=== PATIENT | female | born 1990 | race Caucasian/White ===

== ENCOUNTER 2020-09-21 13:12 | Emergency (ER) | payer OTHER, SELFPAY ==
--- NOTE | ~2020-09-21 | XR_ITS ---
EXAMINATION: XR chest 2V DATE: 09/21/2020 13:58 INDICATION: Chest pain. TECHNIQUE: Frontal and lateral views of the chest were obtained. COMPARISON: Chest 2 views 12/30/16 FINDINGS: The chest demonstrates clear lungs without pneumonia, pleural effusion, or pneumothorax. Th e heart size is normal. IMPRESSION: 1. No acute cardiopulmonary disease. Reviewed, dictated and finalized at location B. PROCESSOR
[2020-09-21 13:17] VITALS: BP 127/76; RESP 18; TEMP 37.1; O2SAT 100
--- NOTE | 2020-09-21 13:21 | ECG_ITS ---
Measurements Intervals [place] Rate: 88 P: 77 AR: 119 QRS: 77 QRSD: 78 T: 19 QT: 343 QTc: 415 Interpretive Statements SINUS RHYTHM WITH SINUS ARRHYTHMIA WITH SHORT AR INTERVAL LEFT ATRIAL ENLARGEMENT INCOMPLETE RIGHT BUNDLE BRANCH BLOCK BORDERLINE ECG Electronically Signed On 09-21-2020 14:12:16 MEDICAL REVIEW COORDINATOR by Wale Covarrubias D.O.
[2020-09-21 13:38] VITALS: O2SAT 100
[2020-09-21 13:41] LABS: Basophils Absolute Auto 0.1 K/mm3 (0.0-0.1); Basophils Percent Auto 0.9 % (0.2-1.2); Eosinophils Absolute Auto 0.1 K/mm3 (0-0.3); Eosinophils Percent Auto 2.6 % (0-4.4); Hematocrit 45.9 % (37.0-47.0); Immature Granulocyte Absolute 0.01 K/mm3 (0.00-0.031); Immature Granulocyte Percent A 0.2 % (0-0.5); Lymphocytes Absolute Auto 1.21 K/mm3 (0.9-3.2); Lymphocytes Percent Auto 22.6 % (18.3-44.2); Mean Corpuscular HGB Conc 32.7 g/dl (32-36); Mean Corpuscular Hemoglobin 29.4 pg (26-34); Mean Platelet Volume 9.8 fl (7.4-10.4); Monocytes Absolute Auto 0.4 K/mm3 (0.1-0.6); Monocytes Percent Auto 6.9 % (2.6-8.5); Neutrophils Absolute Auto 3.6 K/mm3 (1.3-6.7); Neutrophils Percent Auto 66.8 % (45.5-73.1); Platelet Count Result 358 k/mm3 (150-375); Red Cell Distribution Width 12.3 % (11.5-14.5); White Blood Count 5.4 K/mm3 (4.5-10.0)
[2020-09-21] MEDS: ASPIRIN 81 MG CHEWABLE TABLET 324 MG PO (13:49)
[2020-09-21 13:53] LABS: Anion Gap 7 mmol/L (8-16); Blood Urea Nitrogen 12 mg/dL (7-17); Calcium 9.8 mg/dL (8.4-10.2); Carbon Dioxide 30 mmol/L (22-30); Chloride 104 mmol/L (98-107); Estimated CRCL calculation 85 ml/min; Estimated Glomerular Filt Rate > 60; Glucose 84 mg/dL (65-105); Potassium 4.3 mmol/L (3.4-5.0); Sodium 141 mmol/L (137-145)
[2020-09-21 14:03] LABS: Troponin I < 0.012 ng/mL (0.000-0.034)
--- NOTE | 2020-09-21 14:09 | ED.GENADULT ---
HPI - General Adult General Chief complaint: Chest Pain Stated complaint: chest pain Time Seen by Provider: 09/21/20 13:31 Source: patient Mode of arrival: ambulatory Limitations: no limitations History of Present Illness HPI narrative: Patient presents for evaluation of intermittent pressure-like pain to the center of her chest that has been intermittent over the past week. Patient states that she has had chest pains in the past that were stemmed from her anxiety. Patient states originally she felt that this was the same as a few of the incidents happen when she was busy and, in chaos or after an argument with her however she wanted to present for evaluation to be safe rather than sorry. Patient states normally when she has these episodes she calms herself down and they resolve over 15 minutes. However she states last night after an argument with her she had the pain present and it lasted for an hour. Patient states few of the time she has taken her prescribed Xanax which seems to have helped. She reports when the pain presents and she takes a deep breath she feels that it worsens the pain. Otherwise she denies feeling short of breath, diaphoretic, having palpitations, nausea, vomiting, diarrhea, radiation of pain. Patient denies having chronic medical diseases except for anxiety. Patient denies having chest pain presently. Related Data Allergies Allergy/AdvReac Type Severity Reaction Status Date / Time No Known Allergies Allergy Unknown Unverified 07/01/19 15:06 Review of Systems Review of Systems: Narrative: CONSTITUTIONAL: Denies fever, chills, or sweats. EYES: Denies visual changes, redness, or discharge. ENT: Denies rhinorrhea, congestion, sore throat, or otalgia. CARDIOVASCULAR: Reports intermittent chest pain denies palpitations, or edema. RESPIRATORY: Denies cough or dyspnea. GASTROINTESTINAL: Denies abdominal pain, nausea, vomiting, or diarrhea. GENITOURINARY: Denies dysuria or hematuria. SKIN: Denies rash or itching. MUSCULOSKELETAL: Denies back pain, joint pain, or myalgia. NEUROLOGIC: Denies headache, numbness, dizziness, or weakness. PSYCHIATRIC: Reports anxiety denies depression. Exam Narrative: Exam Narrative: GENERAL: Well-appearing, well-nourished, and in no acute distress. HEAD: Normocephalic, atraumatic. EYES: PERRLA and EOMI. ENT: Nares clear, no rhinorrhea or epistaxis. Mucous membranes moist. Bilateral TMs pearly del castillo nonbulging NECK: Supple. No adenopathy or masses. Range of motion intact. CHEST: Pain now elicited with palpation of chest wall. Clear to auscultation. No respiratory distress. No wheezes rales or rhonchi HEART: Regular rate and rhythm. ABDOMEN: Soft, nontender, nondistended, normal active bowel sounds. EXTREMITIES: Normal range of motion. No edema. SKIN: Warm, dry, no rash. NEURO: No focal deficits. Alert and oriented x3. PSYCH: Normal mood and affect. Course Vital Signs Vital signs: Vital Signs Temperature 98.7 F 09/21/20 13:17 Respiratory Rate 18 09/21/20 13:17 Blood Pressure 127/76 09/21/20 13:17 Pulse Oximetry 100 09/21/20 13:17 Temperature 98.7 F 09/21/20 13:17 Pulse Rate 72 09/21/20 14:56 Respiratory Rate 18 09/21/20 14:56 Blood Pressure 127/76 09/21/20 13:17 Pulse Oximetry 100 09/21/20 14:56 Medical Decision Making MDM Narrative Medical decision making narrative: Patient's heart score is 0-1. Patient continues to not have any pain during her emergency department stay. Patient's EKG and troponin and D-dimer are stable. Patient has been instructed to follow-up with her primary care for further investigation which may include stress test, Holter monitoring or echo, or cardiology referral. Patient instructed to return to emergency department if she has any worsening or emergent symptoms. Vital Signs Vital Signs: Vital Signs Temperature 98.7 F 09/21/20 13:17 Respiratory Rate 18 09/21/20 13:17 Blood Pressure 127/7
[2020-09-21 14:15] VITALS: PULSE 89; RESP 15; O2SAT 100
[2020-09-21 14:36] LABS: Prothrombin Time 13.3 Seconds (11.1-14.7)
[2020-09-21 14:37] LABS: Partial Thromboplastin Time 31.3 SECONDS (22.3-36.8)
[2020-09-21 14:41] LABS: D Dimer 0.27 ug/mL (<0.48)
[2020-09-21 14:54] VITALS: PULSE 90
[2020-09-21 14:56] VITALS: PULSE 72; RESP 18; O2SAT 100
== END 2020-09-21 15:39 | disposition home or self-care (01) ==
PROVIDERS: General Practice; Emergency Provider Emergency Medicine
DX: R07.89 Other chest pain (principal)
CPT/HCPCS: 36415; 71046; 80048; 84484; 85025; 85380; 85610; 85730; 93005; 99284; A9270

== ENCOUNTER 2022-04-15 08:17 | Emergency (ER) | payer OTHER, SELFPAY ==
--- NOTE | ~2022-04-15 | XR_ITS ---
EXAMINATION: XR chest 2V DATE: 04/15/2022 09:07 INDICATION: Cough TECHNIQUE: PA and lateral views of the chest are obtained. COMPARISON: None available FINDINGS: The lungs are free of acute opacities. No pleural effusion or pneumothorax. The cardiomedia stinal silhouette is normal. The visualized bones and soft tissues are unremarkable. IMPRESSION: 1. No acute cardiopulmonary abnormality. Reviewed, dictated and finalized at location A.
[2022-04-15 08:22] VITALS: BP 132/74; PULSE 99; RESP 16; TEMP 36.7; O2SAT 100
--- NOTE | 2022-04-15 09:01 | ED.GENADULT ---
HPI - General Adult General Chief complaint: Upper Respiratory Infection Stated complaint: Sore Throat/Cough Source: patient Mode of arrival: ambulatory Limitations: no limitations History of Present Illness HPI narrative: Patient presents for evaluation of sick symptoms for the past 5 days. Symptoms include sore throat and productive cough of green sputum. She denies any fever, chills, nausea, vomiting, diarrhea, shortness of breath, otalgia. Her son is being evaluated here for similar symptoms. She had COVID in January of this year. She is not taking any medication for symptoms. No additional complaints or concerns Related Data Allergies Allergy/AdvReac Type Severity Reaction Status Date / Time No Known Allergies Allergy Unknown Unverified 07/01/19 15:06 Review of Systems Review of Systems: CONSTITUTIONAL: Denies fever, chills, or sweats. EYES: Denies visual changes, redness, or discharge. ENT: Reports sore throat. Denies rhinorrhea, congestion, or otalgia. CARDIOVASCULAR: Denies chest pain, palpitations, or edema. RESPIRATORY:Reports productive cough of green sputum. Denies dyspnea. GASTROINTESTINAL: Denies abdominal pain, nausea, vomiting, or diarrhea. GENITOURINARY: Denies dysuria or hematuria. SKIN: Denies rash or itching. MUSCULOSKELETAL: Denies back pain, joint pain, or myalgia. NEUROLOGIC: Denies headache, numbness, dizziness, or weakness. PSYCHIATRIC: Denies anxiety or depression. PMFSH Past Medical History Medical History (Updated 04/15/22 @ 09:24 by Pedro Mar, [employer], ) No pertinent past medical history Surgical History Surgical History No pertinent past surgical history Family History Family History (Updated 04/15/22 @ 09:05 by Pedro Mar, [facility], ) Mother Family history non-contributory Social History Social History (Updated 04/15/22 @ 09:06 by Pedro Mar, [facility], ) Substance use: never Living arrangements: with family Gender identity (if verbalized by the patient): Female Sexual Orientation (if Verbalized by the Patient): Straight or Heterosexual Spiritual care concerns: No Exam Narrative: GENERAL: Well-appearing, well-nourished, and in no acute distress. HEAD: Normocephalic, atraumatic. EYES: PERRLA and EOMI. ENT: Nares clear, no rhinorrhea or epistaxis. Mucous membranes moist. There is posterior pharyngeal erythema without exudate. Uvula is midline. Bilateral TMs pearly del castillo nonbulging NECK: Supple. No adenopathy or masses. No carotid bruits or JVD CHEST: Clear to auscultation. No respiratory distress. No wheezes rales or rhonchi HEART: Regular rate and rhythm. No murmur heard. Normal peripheral pulses. ABDOMEN: Soft, nontender, nondistended, normal active bowel sounds. EXTREMITIES: Normal range of motion. No edema. SKIN: Warm, dry, no rash. NEURO: No focal deficits. Alert and oriented x3. PSYCH: Normal mood and affect. Course Course Emergency Course: This is a 31-year-old female who presented for evaluation of sick symptoms. COVID test was negative. Chest x-ray normal. She does have posterior pharyngeal erythema and her son has similar symptoms. We will treat with Augmentin do not have rapid strep testing available today. Mucinex DM for cough. Follow-up outpatient for further evaluation and treatment return for worsening symptoms. Patient is in agreement with plan of care. Level of Care: Express Care Visit Vital Signs Vital signs: Vital Signs Temperature 36.7 C 04/15/22 08:22 Pulse Rate 99 04/15/22 08:22 Respiratory Rate 16 04/15/22 08:22 Blood Pressure 132/74 04/15/22 08:22 Pulse Oximetry 100 04/15/22 08:22 Oxygen Delivery Room Air 04/15/22 08:22 Temperature 36.7 C 04/15/22 08:22 Pulse Rate 99 04/15/22 08:22 Respiratory Rate 16 04/15/22 08:22 Blood Pressure 132/74 04/15/22 08:22 Pulse Oximetry 100 04/15/22 08:22 Oxygen Delivery Room Air
== END 2022-04-15 09:35 | disposition home or self-care (01) ==
PROVIDERS: Emergency Provider Nurse Practitioner
DX: J02.9 Acute pharyngitis, unspecified (principal); Z20.822 Contact with and (suspected) exposure to COVID-19; Z86.16 Personal history of COVID-19
CPT/HCPCS: 71046; 87081; 87426; 99213; C9803; G0463

== ENCOUNTER 2022-07-11 17:57 | Emergency (ER) | payer OTHER, SELFPAY ==
[2022-07-11 18:02] VITALS: BP 130/76; PULSE 91; RESP 16; TEMP 36.7; O2SAT 100
--- NOTE | 2022-07-11 18:07 | ED.URI ---
HPI - URI/Sore Throat General Chief Complaint: Upper Respiratory Infection Stated Complaint: sore throat, headache, body ache Time Seen by Provider: 07/11/22 18:07 Source: patient and RN notes reviewed History of Present Illness HPI Narrative: Patient is a 31-year-old female who presents to the Urgent Care with complaints of sore throat, headache and body aches. Patient states that it started today and her sign is also positive for strep throat. Patient denies any fever, nausea or vomiting. States that she has not taken anything [id number] for her symptoms. No other acute complaints. No acute distress noted. Patient aware of the plan care. Some parts of this dictation were generated by voice recognition software and may contain typographical and/or grammatical inaccuracies. Related Data Home Medications Medication Instructions Recorded Confirmed alprazolam 0.25 mg tablet 0.125 mg PO DAILY 07/11/22 07/11/22 Allergies Allergy/AdvReac Type Severity Reaction Status Date / Time No Known Allergies Allergy Unknown Verified 07/11/22 18:17 Review of Systems Review of Systems: CONSTITUTIONAL: Denies fever, chills, or sweats. EYES: Denies visual changes, redness, or discharge. ENT: Denies rhinorrhea, congestion, Otalgia. Reports of sore throat CARDIOVASCULAR: Denies chest pain, palpitations, or edema. RESPIRATORY: Denies cough or dyspnea. GASTROINTESTINAL: Denies abdominal pain, nausea, vomiting, or diarrhea. GENITOURINARY: Denies dysuria or hematuria. SKIN: Denies rash or itching. MUSCULOSKELETAL: Denies back pain, joint pain. Reports of body aches NEUROLOGIC: reports a headache All other systems reviewed are negative, except as documented in HPI. COUNTS INCLUDE 234 BEDS AT THE [facility] Past Medical History Medical History (Updated 07/11/22 @ 18:21 by LUBA Reyes) No pertinent past medical history Surgical History Surgical History No pertinent past surgical history Family History Family History (Updated 04/15/22 @ 09:05 by LUBA Colunga, CYRUS) Mother Family history non-contributory Social History Social History (Updated 04/15/22 @ 09:06 by LUBA Colunga, CYRUS) Substance use: never Gender identity (if verbalized by the patient): Female Sexual Orientation (if Verbalized by the Patient): Straight or Heterosexual Spiritual care concerns: No Comments At the time of my signature, I reviewed and agree with the nursing past medical, surgical, social, and family history. There is no relevant family history pertinent to the patient complaint. Exam Narrative: GENERAL: This is a well-nourished, well-developed patient, in no apparent distress. HEAD: normocephalic, atraumatic. EYES: PERRL. Sclera clear/white. Vision is grossly intact. EARS: External ears normal, auditory canals clear and without drainage, TMs normal without perforation. Hearing grossly intact. NOSE: External nose normal with no obvious nasal discharge, nares without redness, no rhinorrhea. THROAT: Mucous membranes moist, Mild erythema of the posterior pharynx with moderate postnasal drainage. NECK: Neck supple, non-tender without lymphadenopathy CARDIOVASCULAR: Regular rate and rhythm without murmurs, gallops, or rubs. RESPIRATORY: Clear to auscultation. Breath sounds equal bilaterally. No wheezes, rales, or rhonchi. SKIN: warm, intact with no suspicious lesions or rash, good texture and turgor. NEURO: awake, alert, and oriented to person, place and time. There were no obvious focal neurologic abnormalities. EXTREMITIES: No clubbing, cyanosis, or edema. Course Course Level of Care: Express Care Visit Vital Signs Vital signs: Vital Signs Temperature 98.1 F 07/11/22 18:02 Pulse Rate 91 07/11/22 18:02 Respiratory Rate 16 07/11/22 18:02 Blood Pressure 130/76 07/11/22 18:02 Pulse Oximetry 100 07/11/22 18:02 Oxygen Delivery Room Air 07/11/22 18:02
== END 2022-07-11 18:25 | disposition home or self-care (01) ==
PROVIDERS: Emergency Provider Nurse Practitioner Family
DX: J02.0 Streptococcal pharyngitis (principal)
CPT/HCPCS: 87880; 99213; G0463

== ENCOUNTER 2022-09-20 08:24 | Emergency (ER) | payer OTHER, SELFPAY ==
--- NOTE | 2022-09-20 08:26 | ED.URI ---
HPI - URI/Sore Throat General Chief Complaint: Upper Respiratory Infection Stated Complaint: sore throat body aches/headache Time Seen by Provider: 09/20/22 08:26 Source: patient and RN notes reviewed History of Present Illness HPI Narrative: Patient is a 32-year-old female who presents to urgent care with complaints of sore throat, body aches, headache. Patient states symptoms started 2 days ago. Denies any known fever, nausea, vomiting. 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 Patient is not taking anything [id number] for her symptoms. No other acute complaints. No acute distress noted. Patient aware of the plan of care. Some parts of this dictation were generated by voice recognition software and may contain typographical and/or grammatical inaccuracies. Related Data Home Medications Medication Instructions Recorded Confirmed alprazolam 0.25 mg tablet 0.125 mg PO DAILY 07/11/22 07/11/22 cyclobenzaprine 5 mg tablet 5 mg PO DAILY 09/20/22 09/20/22 Allergies Allergy/AdvReac Type Severity Reaction Status Date / Time No Known Allergies Allergy Unknown Verified 09/20/22 08:34 Review of Systems Review of Systems: CONSTITUTIONAL: Denies fever, chills, or sweats. EYES: Denies visual changes, redness, or discharge. ENT: Denies rhinorrhea, congestion, Otalgia. Reports of sore throat CARDIOVASCULAR: Denies chest pain, palpitations, or edema. RESPIRATORY: Denies cough or dyspnea. GASTROINTESTINAL: Denies abdominal pain, nausea, vomiting, or diarrhea. GENITOURINARY: Denies dysuria or hematuria. SKIN: Denies rash or itching. MUSCULOSKELETAL: Denies back pain, joint pain. reports body aches NEUROLOGIC: reports of headache All other systems reviewed are negative, except as documented in HPI. [facility] Past Medical History Medical History (Updated 09/20/22 @ 08:50 by LUBA Reyes) No pertinent past medical history Surgical History Surgical History No pertinent past surgical history Family History Family History (Updated 04/15/22 @ 09:05 by LUBA Colunga, CYRUS) Mother Family history non-contributory Social History Social History (Updated 04/15/22 @ 09:06 by Pedro Mar, [facility], ) Substance use: never Gender identity (if verbalized by the patient): Female Sexual Orientation (if Verbalized by the Patient): Straight or Heterosexual Spiritual care concerns: No Comments At the time of my signature, I reviewed and agree with the nursing past medical, surgical, social, and family history. There is no relevant family history pertinent to the patient complaint. Exam Narrative: GENERAL: This is a well-nourished, well-developed patient, in no apparent distress. HEAD: normocephalic, atraumatic. EYES: PERRL. Sclera clear/white. Vision is grossly intact. EARS: External ears normal, auditory canals clear and without drainage, TMs normal without perforation. Hearing grossly intact. NOSE: External nose normal with no obvious nasal discharge, nares without redness, no rhinorrhea. THROAT: Mucous membranes moist, mild erythema to posterior pharynx with moderate postnasal drainage NECK: Neck supple, non-tender without lymphadenopathy CARDIOVASCULAR: Regular rate and rhythm without murmurs, gallops, or rubs. RESPIRATORY: Clear to auscultation. Breath sounds equal bilaterally. No wheezes, rales, or rhonchi. SKIN: warm, intact with no suspicious lesions or rash, good texture and turgor. NEURO: awake, alert, and oriented to person, place and time. There were no obvious focal neurologic abnormalities. EXTREMITIES: No clubbing, cyanosis, or edema. Course Course Level of Care: Express Care Visit Vital Signs Vital signs: Vital Signs Temperature 99.2 F 09/20/22 08:30 Pulse Rate 114 H 09/20/22 08:30 Respiratory Rate 20 09/20/22 08:30 Blood Pressure 124/69 09/20/22 08:30 Pulse Oximetry 100 09/02
[2022-09-20 08:30] VITALS: BP 124/69; PULSE 114; RESP 20; TEMP 37.3; O2SAT 100
== END 2022-09-20 08:55 | disposition home or self-care (01) ==
PROVIDERS: Emergency Provider Nurse Practitioner Family
DX: J02.9 Acute pharyngitis, unspecified (principal)
CPT/HCPCS: 87081; 87880; 99213; G0463

== ENCOUNTER 2022-11-16 16:48 | Emergency (ER) | payer OTHER, SELFPAY ==
[2022-11-16 16:53] VITALS: BP 121/74; PULSE 80; RESP 20; TEMP 36.8; O2SAT 100
--- NOTE | 2022-11-16 17:00 | ED.URI ---
HPI - URI/Sore Throat General Chief Complaint: Upper Respiratory Infection Stated Complaint: headache sore throat Source: patient and RN notes reviewed History of Present Illness HPI Narrative: 32 yo F presents to urgent care with complaints of sore throat and headache that started today. Reports some chills. Denies any fevers, vomiting, ear pain, congestion, diarrhea, or cough. Pt states her daughter tested + for strep today and she drank after her last night. Related Data Allergies Allergy/AdvReac Type Severity Reaction Status Date / Time No Known Allergies Allergy Unknown Verified 11/16/22 17:00 Review of Systems Review of Systems: Pertinent positives and pertinent negatives per HPI. [facility] Past Medical History Medical History (Updated 11/16/22 @ 17:19 by Delia Cramer, DIE DESIGNER) No pertinent past medical history Surgical History Surgical History No pertinent past surgical history Family History Family History (Updated 04/15/22 @ 09:05 by Pedro Mar, [facility], ) Mother Family history non-contributory Social History Social History (Updated 04/15/22 @ 09:06 by Pedro Mar, [facility], ) Substance use: never Living arrangements: with family Gender identity (if verbalized by the patient): Female Sexual Orientation (if Verbalized by the Patient): Straight or Heterosexual Spiritual care concerns: No Comments At the time of my signature, I reviewed and agree with the nursing past medical, surgical, social, and family history. There is no relevant family history pertinent to the patient complaint. Exam Narrative: GENERAL: This is a well-nourished, well-developed patient, in no apparent distress. HEAD: normocephalic, atraumatic. EYES: PERRL. Sclera clear/white. Vision is grossly intact. EARS: External ears normal, auditory canals clear and without drainage, TMs normal without perforation. Hearing grossly intact. NOSE: External nose normal with no obvious nasal discharge, nares without redness, no rhinorrhea. THROAT: Mucous membranes moist, posterior pharynx erythemic. NECK: Neck supple, non-tender without lymphadenopathy, masses or thyromegaly. CARDIOVASCULAR: Regular rate and rhythm without murmurs, gallops, or rubs. RESPIRATORY: Clear to auscultation. Breath sounds equal bilaterally. No wheezes, rales, or rhonchi. GASTROINTESTINAL: Abdomen soft, non-tender, nondistended. Bowel sounds are active. No hepato-splenomegaly, or palpable masses. No guarding. SKIN: warm, intact with no suspicious lesions or rash, good texture and turgor. NEURO: awake, alert, and oriented to person, place and time. There were no obvious focal neurologic abnormalities. Course Course Level of Care: Express Care Visit Vital Signs Vital signs: Vital Signs Temperature 98.2 F 11/16/22 16:53 Pulse Rate 80 11/16/22 16:53 Respiratory Rate 20 11/16/22 16:53 Blood Pressure 121/74 11/16/22 16:53 Pulse Oximetry 100 11/16/22 16:53 Oxygen Delivery Room Air 11/16/22 16:53 Temperature 98.2 F 11/16/22 16:53 Pulse Rate 80 11/16/22 16:53 Respiratory Rate 20 11/16/22 16:53 Blood Pressure 121/74 11/16/22 16:53 Pulse Oximetry 100 11/16/22 16:53 Oxygen Delivery Room Air 11/16/22 16:53 Reviewed MDM - URI/Sore Throat MDM Narrative Medical decision making narrative: Rapid strep is negative in the office; however we will send to the lab for confirmation; there is a small percentage chance that it can come back positive; if it is, we will call you in 2-3days. -Increase your fluids and Vitamin C. -Oral rinses such as: Salt water gargles and/or may use topical anesthetic (eg. Chloraseptic spray) or lozenges to relieve dryness or throat pain. -Take tylenol and ibuprofen as needed for pain and fever as directed. -Frequent hand washing or hand crank hand is one of the best ways to prevent spread of infection. -Follow up with primary care pro
== END 2022-11-16 17:23 | disposition home or self-care (01) ==
PROVIDERS: Emergency Provider Nurse Practitioner Family; PCP Family Medicine
DX: J02.9 Acute pharyngitis, unspecified (principal)
CPT/HCPCS: 87081; 87880; 99213; G0463

== ENCOUNTER 2022-11-26 15:29 | Emergency (ER) | payer OTHER, SELFPAY ==
--- NOTE | ~2022-11-26 | XR_ITS ---
EXAMINATION: XR hand RT min 3V DATE: 11/26/2022 15:57 INDICATION: Right hand injury and pain. TECHNIQUE: 3 views of right hand were obtained. COMPARISON: None. FINDINGS: Bone alignment is normal. No fracture. Joint spaces are well maintained. IMPRESSION: 1. No fracture. Reviewed, dictated and finalized at location A. IMPRESSION: 1. No fracture.
--- NOTE | 2022-11-26 15:36 | ED.UPPEXIN ---
HPI - Extremity Injury (Upper) General Chief Complaint: Extremity Injury, Upper Stated Complaint: right hand injury Time Seen by Provider: 11/26/22 15:36 Source: patient and RN notes reviewed History of Present Illness HPI narrative: Patient is a 31 old female presents to urgent care with complaints of right hand pain. Patient states she got it slammed between a door knob and chair last night. Patient states she is having difficulty straightening the hand. Patient is not taking anything [id number] for her symptoms. No other acute complaints. No acute distress noted. Patient aware of the plan of care. Some parts of this dictation were generated by voice recognition software and may contain typographical and/or grammatical inaccuracies. Related Data Allergies Allergy/AdvReac Type Severity Reaction Status Date / Time No Known Allergies Allergy Unknown Verified 11/16/22 17:00 Review of Systems Review of Systems: CONSTITUTIONAL: Denies fever, chills, or sweats. EYES: Denies visual changes, redness, or discharge. ENT: Denies rhinorrhea, congestion, sore throat, or otalgia. CARDIOVASCULAR: Denies chest pain, palpitations, or edema. RESPIRATORY: Denies cough or dyspnea. GASTROINTESTINAL: Denies abdominal pain, nausea, vomiting, or diarrhea. GENITOURINARY: Denies dysuria or hematuria. SKIN: Denies rash or itching. MUSCULOSKELETAL: Reports of right hand pain NEUROLOGIC: Denies headache, numbness, or weakness. All other systems reviewed are negative, except as documented in HPI. PMFSH Past Medical History Medical History (Updated 11/26/22 @ 16:12 by LAMAR ReyesP) No pertinent past medical history Surgical History Surgical History No pertinent past surgical history Family History Family History (Updated 04/15/22 @ 09:05 by Pedro Mar, LUBA, ) Mother Family history non-contributory Social History Social History (Updated 04/15/22 @ 09:06 by Pedro Mar, SUPPORT ASSOCIATE, ) Substance use: never Living arrangements: with family Gender identity (if verbalized by the patient): Female Sexual Orientation (if Verbalized by the Patient): Straight or Heterosexual Spiritual care concerns: No Exam Narrative: GENERAL: This is a well-nourished, well-developed patient, in no apparent distress. HEAD: normocephalic, atraumatic. EYES: PERRL. Sclera clear/white. Vision is grossly intact. EARS: External ears normal NOSE: External nose normal with no obvious nasal discharge, nares without redness, no rhinorrhea. THROAT: Mucous membranes moist NECK: Neck supple SKIN: warm, intact with no suspicious lesions or rash, good texture and turgor. NEURO: awake, alert, and oriented to person, place and time. There were no obvious focal neurologic abnormalities. EXTREMITIES: Clps-go-[id number] tenderness between the 3-4 MCP region with mild ecchymosis. Range of motion limited due to pain. Positive strong right radial pulse with capillary refill less than 2 seconds. Course Course Level of Care: Express Care Visit Vital Signs Vital signs: Vital Signs Temperature 98.7 F 11/26/22 15:41 Pulse Rate 60 11/26/22 15:41 Respiratory Rate 16 11/26/22 15:41 Blood Pressure 125/80 11/26/22 15:41 Pulse Oximetry 100 11/26/22 15:41 Oxygen Delivery Room Air 11/26/22 15:41 Temperature 98.7 F 11/26/22 15:41 Pulse Rate 60 11/26/22 15:41 Respiratory Rate 16 11/26/22 15:41 Blood Pressure 125/80 11/26/22 15:41 Pulse Oximetry 100 11/26/22 15:41 Oxygen Delivery Room Air 11/26/22 15:41 Reviewed MDM - Extremity Injury (Upper) MDM Narrative Medical decision making narrative: Reviewed x-ray results with patient. She is aware that there is no fracture deformity noted to the hand. Advised to use ice/Tylenol/ibuprofen as needed for pain or discomfort. May wear an Abdiel wrap for support. Follow-up with your PCP within 2-5 days
[2022-11-26 15:41] VITALS: BP 125/80; PULSE 60; RESP 16; TEMP 37.1; O2SAT 100
== END 2022-11-26 16:18 | disposition home or self-care (01) ==
PROVIDERS: Emergency Provider Nurse Practitioner Family; PCP Emergency Medicine
DX: S60.221A Contusion of right hand, initial encounter (principal); W23.0XXA Caught, crushed, jammed, or pinched between moving objects, initial encounter
CPT/HCPCS: 73130; 99213; G0463

== ENCOUNTER 2023-01-19 15:45 | Emergency (ER) | payer OTHER, SELFPAY ==
--- NOTE | ~2023-01-19 | CT_ITS ---
EXAMINATION: CT abdomen pelvis w con DATE: 01/19/2023 17:32 INDICATION: rlq pain TECHNIQUE: Computed tomography (CT) of the abdomen and pelvis was performed with 100 mL Omnipaque-350 intravenous contrast. Automated exposure control and iterative reconstruction technique were employe d. The dose-length product was 292.57 mGy-cm. COMPARISON: None. FINDINGS: Lower thorax: Unremarkable Liver: Normal. Biliary/Gallbladder: Gallbladder is normal. No bile duct dilation. Pancreas: No mass or duct dilation. Spleen: Normal. Adrenals:No mass. Kidneys: No mass, stone, or hydronephrosis. GI tract: Mild distal esophageal and gastric wall edema. No small or large bowel dilation. Appendix n ot visualized, however there was no acute inflammatory process detected in the right lower quadrant. Mesentery/Peritoneum: No ascites, mass, or free air. Retroperitoneum: No mass. Pelvis: Pelvic organs are within normal limits. Trace pelvic fluid, within physiologic range. Distal ureters were not traceable however no calcification present in the expected pathway of the ureters. Soft Tissues: Soft tissues and body wall unremarkable. Bones: No acute osseous finding. IMPRESSION: Mild esophagitis and gastritis. Otherwise, no acute abdominopelvic process detected. Reviewed, dictated and finalized at location K. IMPRESSION: Mild esophagitis and gastritis. Otherwise, no acute abdominopelvic process dete cted.
--- NOTE | 2023-01-19 15:53 | ECG_ITS ---
Measurements Intervals [place] Rate: 91 P: 52 MI: 139 QRS: 61 QRSD: 102 T: 29 QT: 336 QTc: 415 Interpretive Statements SINUS RHYTHM INCOMPLETE RIGHT BUNDLE BRANCH BLOCK BORDERLINE ECG COMPARED TO ECG 09/21/2020 13:19:38 NO SIGNIFICANT CHANGES Electronically Signed On 01-19-2023 17:51:04 CDT by Wale Covarrubias D.O.
[2023-01-19 16:09] VITALS: BP 141/95; PULSE 119; RESP 16; TEMP 37.1; O2SAT 100
[2023-01-19] MEDS: SODIUM CHLORIDE 0.9% IV 1,000 ML 999 ML IV CONT (16:38)
[2023-01-19] MEDS: FAMOTIDINE 20 MG/2 ML VIAL IV PUSH (16:39)
[2023-01-19] MEDS: KETOROLAC 30 MG/ML VIAL (*BKC) IV PUSH (16:39)
[2023-01-19] MEDS: ONDANSETRON INJ 4 MG/2 ML VIAL IV PUSH (16:39)
[2023-01-19 16:40] LABS: Basophils Percent Auto 0.4 % (0.2-1.2); Eosinophils Absolute Auto 0.1 K/mm3 (0-0.3); Hematocrit 46.9 % (37.0-47.0); Hemoglobin 15.6 g/dL (12.0-15.0); Immature Granulocyte Absolute 0.02 K/mm3 (0.00-0.031); Immature Granulocyte Percent A 0.2 % (0-0.5); Lymphocytes Absolute Auto 1.33 K/mm3 (0.9-3.2); Mean Corpuscular HGB Conc 33.3 g/dl (32-36); Mean Corpuscular Volume 87.2 fl (80-100); Mean Platelet Volume 10.1 fl (7.4-10.4); Monocytes Absolute Auto 0.5 K/mm3 (0.1-0.6); Monocytes Percent Auto 6.4 % (2.6-8.5); Neutrophils Absolute Auto 6.3 K/mm3 (1.3-6.7); Platelet Count Result 367 k/mm3 (150-375); Red Blood Count 5.38 M/mm3 (4.2-5.4); Red Cell Distribution Width 12.8 % (11.5-14.5); White Blood Count 8.3 K/mm3 (4.5-10.0)
[2023-01-19 16:41] LABS: Appearance Urine Clear (Clear); Bilirubin Urine Negative (Negative); Blood Urine Negative (Negative); Color Urine Yellow (Yellow); Glucose Urine UA Negative (Negative); Ketones Urine Negative (Negative); Leukocyte Esterase Ur Negative LEU/UL (Negative); Nitrate Urine Negative (Negative); Protein Urine Negative (Negative); Specific Grav Ur 1.004 (1.001-1.035); Urobilinogen Urine 0.2 mg/dL (<2.0); pH Urine 6.5 (5.0-9.0)
--- NOTE | 2023-01-19 16:45 | ED.GENADULT ---
HPI - General Adult General Chief complaint: Abdominal Pain Stated complaint: abdominal pain Time Seen by Provider: 01/19/23 15:52 History of Present Illness HPI narrative: Lashae Oscar is a 32 y/o female who presents with reports of having mid abdominal pain that started yesterday morning at 0900. She reports that she had just eaten breakfast and also felt nauseated. She reports that the pain felt more severe last night but was able to fall asleep. She woke up this morning and her pain was gone, she said her abdomen felt a little weird. She says that she tried to eat at 1200 and her pain returned with nausea. She denies vomiting. She reports that her mid abdominal pain started to move to her left flank and then to her right lower quadrant today. She reports of continued nausea no vomiting. She denies changes to her urination. Last BM was today and was normal, no bright red blood in stool She reports eating makes her pain worse. Related Data Allergies Allergy/AdvReac Type Severity Reaction Status Date / Time No Known Allergies Allergy Unknown Verified 01/19/23 15:46 Review of Systems Review of Systems: CONSTITUTIONAL: Denies fever, chills, or sweats. EYES: Denies visual changes, redness, or discharge. ENT: Denies rhinorrhea, congestion, sore throat, or otalgia. CARDIOVASCULAR: Denies chest pain, palpitations, or edema. RESPIRATORY: Denies cough or dyspnea. GASTROINTESTINAL: Reports abdominal pain, nausea, no vomiting GENITOURINARY: Denies dysuria or hematuria. SKIN: Denies rash or itching. MUSCULOSKELETAL: Denies back pain, joint pain, or myalgia. NEUROLOGIC: Denies headache, numbness, dizziness, or weakness. PSYCHIATRIC: Denies anxiety or depression. [facility] Past Medical History Medical History No pertinent past medical history Surgical History Surgical History No pertinent past surgical history Family History Family History Mother Family history non-contributory Social History Social History Substance use: never Living arrangements: with family Gender identity (if verbalized by the patient): Female Sexual Orientation (if Verbalized by the Patient): Straight or Heterosexual Spiritual care concerns: No Exam Narrative: GENERAL: Well-appearing, well-nourished, and in no acute distress. HEAD: Normocephalic, atraumatic. EYES: PERRLA and EOMI. ENT: Nares clear, no rhinorrhea or epistaxis. Mucous membranes moist. Oropharynx without tonsillar hypertrophy exudate or other lesions. Bilateral TMs pearly del castillo nonbulging NECK: Supple. No adenopathy or masses. No carotid bruits or JVD CHEST: Clear to auscultation. No respiratory distress. No wheezes rales or rhonchi HEART: Regular rate and rhythm. No murmur heard. Normal peripheral pulses. ABDOMEN: Flat, skin color normal for ethnicity, hypoactive bowel sounds, abdomen soft, pain noted to right lower quadrant, pain noted to left flank, No pain to right upper quadrant, no pain to the left upper quadrant, mild pain to mid umbilicus EXTREMITIES: Normal range of motion. No edema. SKIN: Warm, dry, no rash. NEURO: No focal deficits. Alert and oriented x3. PSYCH: Normal mood and affect. Course Vital Signs Vital signs: Vital Signs Temperature 37.1 C 01/19/23 16:09 Pulse Rate 119 H 01/19/23 16:09 Respiratory Rate 16 01/19/23 16:09 Blood Pressure 141/95 H 01/19/23 16:09 Pulse Oximetry 100 01/19/23 16:09 Oxygen Delivery Room Air 01/19/23 16:09 Temperature 37.1 C 01/19/23 16:09 Pulse Rate 119 H 01/19/23 16:09 Respiratory Rate 16 01/19/23 16:09 Blood Pressure 141/95 H 01/19/23 16:09 Pulse Oximetry 100 01/19/23 16:09 Oxygen Delivery Room Air 01/19/23 16:09 Medical Decision Making MDM Narrative Medical
[2023-01-19 16:49] LABS: Add Urine Microscopic? NO; Alanine Aminotransferase 22 U/L (6-35); Albumin Level 5.4 g/dL (3.5-5.1); Alkaline Phosphatase 91 U/L (38-126); Anion Gap 11 mmol/L (8-16); Aspartate Amino Transferase 29 U/L (14-36); Bilirubin,Total 1.1 mg/dL (0.2-1.3); Blood Urea Nitrogen 8 mg/dL (7-17); Calcium 9.5 mg/dL (8.4-10.2); Carbon Dioxide 27 mmol/L (22-30); Chloride 102 mmol/L (98-107); Estimated CRCL calculation 98 ml/min; Estimated Glomerular Filt Rate > 60; Glucose 108 mg/dL (65-110); Lipase 55 U/L (23-300); Potassium 3.7 mmol/L (3.4-5.0); Sodium 140 mmol/L (137-145)
[2023-01-19] MEDS: BELLADONNA ALK/PHENOB ELIX 10 ML, MAG HYDROX/ALUMINUM HYD/SIMETH 30 ML, LIDOCAINE HCL 2... PO (18:34)
== END 2023-01-19 19:23 | disposition home or self-care (01) ==
PROVIDERS: Emergency Provider Nurse Practitioner Family; PCP Family Medicine
DX: K29.00 Acute gastritis without bleeding (principal); R11.0 Nausea; K20.90 Esophagitis, unspecified without bleeding
CPT/HCPCS: 36415; 74177; 80053; 81003; 81025; 83690; 85025; 93005; 96361; 96374; 96375; 99284; A9270; J1885; J2405; J7030; Q9967

== ENCOUNTER 2023-04-19 08:24 | Emergency (ER) | payer OTHER, SELFPAY ==
[2023-04-19 08:32] VITALS: BP 117/80; PULSE 70; RESP 16; TEMP 36.3; O2SAT 100
--- NOTE | 2023-04-19 08:53 | ED.EAR ---
HPI - Ear Problem General Chief complaint: Ear Stated complaint: right ear Time Seen by Provider: 04/19/23 08:50 Source: patient and RN notes reviewed Mode of arrival: ambulatory Limitations: no limitations History of Present Illness HPI Narrative: 32-year-old female presents with concern for right ear pain and fullness. She reports symptoms started 3 days ago. She reports nasal congestion. She denies fever, drainage from the ear. Reports decreased hearing in the right ear MD Complaint: ear pain Related Data Allergies Allergy/AdvReac Type Severity Reaction Status Date / Time No Known Allergies Allergy Unknown Verified 04/19/23 08:45 Review of Systems Review of Systems: CONSTITUTIONAL: Denies malaise, chills, sweats, or fever. EYES: Denies visual changes, redness, or discharge. ENT: Denies rhinorrhea, sinus pain, and sore throat. Reports sinus congestion, right ear pain and fullness CARDIOVASCULAR: Denies chest pain, palpitations, or edema. RESPIRATORY: Denies cough. Denies dyspnea. GASTROINTESTINAL: Denies abdominal pain, nausea, vomiting, diarrhea SKIN: Denies rash or itching. MUSCULOSKELETAL: Denies myalgia. NEUROLOGIC: Denies headache. All systems reviewed & are unremarkable except as noted in HPI and below PMFSH Past Medical History Medical History No pertinent past medical history Surgical History Surgical History No pertinent past surgical history Family History Family History Mother Family history non-contributory Social History Social History Substance use: never Living arrangements: with family Gender identity (if verbalized by the patient): Female Sexual Orientation (if Verbalized by the Patient): Straight or Heterosexual Spiritual care concerns: No Comments At time of signature, agree with nursing past medical, surgical, social and family history. There is no relevant family history pertinent to the presenting complaint Exam Narrative: GENERAL: Well-appearing, well-nourished, and in no acute distress. HEAD: Normocephalic EYES: PERRLA, conjunctivae clear ENT: Nares clear, turbinates edematous, clear discharge. Mucous membranes moist. TM pearly del castillo with dull light reflex bilaterally; no tragal tenderness. Oropharynx not erythematous without lesions. Tonsils not enlarged and without exudate, no drooling, no hoarseness, no trismus, uvula midline. NECK: Supple. No lymphadenopathy CHEST: Clear to auscultation, breath sounds equal. No wheezing, rhonchi, rales, or stridor. No respiratory distress, speaks in full sentences. HEART: Regular rate and rhythm. No murmur heard. SKIN: Warm, dry, no rash. NEURO: Alert and oriented x3. PSYCH: Normal mood and affect Course Course Emergency Course: Patient is aware of diagnosis, understands and agrees to treatment plan. Anticipatory guidance given. Patient agrees to follow-up as directed and is aware of reasons to seek care at the emergency department. Portions of this record may have been created with voice recognition software Level of Care: Express Care Visit Vital Signs Vital signs: Vital Signs Temperature 97.4 F L 04/19/23 08:32 Pulse Rate 70 04/19/23 08:32 Respiratory Rate 16 04/19/23 08:32 Blood Pressure 117/80 04/19/23 08:32 Pulse Oximetry 100 04/19/23 08:32 Oxygen Delivery Room Air 04/19/23 08:32 Temperature 97.4 F L 04/19/23 08:32 Pulse Rate 70 04/19/23 08:32 Respiratory Rate 16 04/19/23 08:32 Blood Pressure 117/80 04/19/23 08:32 Pulse Oximetry 100 04/19/23 08:32 Oxygen Delivery Room Air 04/19/23 08:32 Reviewed. Medical Decision Making MDM Narrative Medical decision making narrative: Differential diagnosis considered: [place] virus, strep pharyngitis, allergic rhinitis
== END 2023-04-19 09:12 | disposition home or self-care (01) ==
PROVIDERS: Emergency Provider Nurse Practitioner
DX: H73.893 Other specified disorders of tympanic membrane, bilateral (principal)
CPT/HCPCS: 99213; G0463

== ENCOUNTER 2023-05-18 10:33 | Emergency (ER) | payer OTHER, SELFPAY ==
[2023-05-18 10:45] VITALS: BP 131/70; PULSE 103; RESP 16; TEMP 37; O2SAT 100
--- NOTE | 2023-05-18 11:22 | ED.GENADULT ---
HPI - General Adult General Chief complaint: Upper Respiratory Infection Stated complaint: Right Eye Swelling/Sore Throat Source: patient Mode of arrival: ambulatory Limitations: no limitations History of Present Illness HPI narrative: Patient presents for evaluation of sick symptoms for last week. Symptoms include sinus congestion, mucopurulent discharge from the nares, sore throat, and chills. No fever, nausea, vomiting, diarrhea, cough or SOB. Her son recently had strep and daughter has similar symptoms to those of patient. She tried flonase but it did not help. She is a former smoker. Last night she developed some right eye irritation and redness. She woke from sleep this morning with thick yellow drainage from right eye. No visual disturbance. Related Data Allergies Allergy/AdvReac Type Severity Reaction Status Date / Time No Known Allergies Allergy Unknown Verified 05/18/23 11:02 Review of Systems Review of Systems: CONSTITUTIONAL: Reports chills. Denies fever, or sweats. EYES: Reports right eye redness, irritation and thick yellow discharge. Denies visual changes ENT: Reports sinus congestion, mucopurulent discharge from nares, sore throat CARDIOVASCULAR: Denies chest pain, palpitations, or edema. RESPIRATORY: Denies cough or dyspnea GASTROINTESTINAL: Denies abdominal pain, nausea, vomiting, or diarrhea. GENITOURINARY: Denies dysuria or hematuria. SKIN: Denies rash or itching. MUSCULOSKELETAL: Denies back pain, joint pain, or myalgia. NEUROLOGIC: Denies headache, numbness, dizziness, or weakness. PSYCHIATRIC: Denies anxiety or depression. [facility] Past Medical History Medical History No pertinent past medical history Surgical History Surgical History No pertinent past surgical history Family History Family History Mother Family history non-contributory Social History Social History Substance use: never Living arrangements: with family Gender identity (if verbalized by the patient): Female Sexual Orientation (if Verbalized by the Patient): Straight or Heterosexual Spiritual care concerns: No Exam Narrative: GENERAL: Well-appearing, well-nourished, and in no acute distress. HEAD: Normocephalic, atraumatic. EYES: Right conjunctival injection with thick yellow discharge noted on lashes. PERRLA and EOMI. ENT: Nares clear, no rhinorrhea or epistaxis. Mucous membranes moist. Oropharynx without tonsillar hypertrophy exudate or other lesions. Bilateral TMs pearly del castillo nonbulging NECK: Supple. No adenopathy or masses. No carotid bruits or JVD CHEST: Clear to auscultation. No respiratory distress. No wheezes rales or rhonchi HEART: Regular rate and rhythm. No murmur heard. Normal peripheral pulses. ABDOMEN: Soft, nontender, nondistended, normal active bowel sounds. EXTREMITIES: Normal range of motion. No edema. SKIN: Warm, dry, no rash. NEURO: No focal deficits. Alert and oriented x3. PSYCH: Normal mood and affect. Course Course Emergency Course: This is a 32-year-old female who presented for evaluation of sick symptoms. She meets criteria for ABRS based on duration of time with which she has been symptomatic and mucopurulent quality of discharge. Strep and COVID negative. Will dc with augmentin. She also has evidence of conjunctivitis so will dc with moxifloxacin. Increase hydration. OTC agents for symptom management. Follow up with primary provider. Go to the ER for worsening symptoms. Pt in agreement with plan of care Level of Care: Express Care Visit Vital Signs Vital signs: Vital Signs Temperature 37.0 C 05/18/23 10:45 Pulse Rate 103 H 05/18/23 10:45 Respiratory Rate 16 05/18/23 10:45 Blood Pressure 131/70 05/18/23 10:45
== END 2023-05-18 11:25 | disposition home or self-care (01) ==
PROVIDERS: Emergency Provider Nurse Practitioner
DX: J01.90 Acute sinusitis, unspecified (principal); H10.9 Unspecified conjunctivitis; Z20.822 Contact with and (suspected) exposure to COVID-19
CPT/HCPCS: 87081; 87426; 87880; 99213; C9803; G0463

== ENCOUNTER 2023-07-17 12:10 | Outpatient (CLI) | payer OTHER, SELFPAY ==
--- NOTE | ~2023-07-17 | XR_ITS ---
Cervical Spine: AP and lateral views Clinical History: Pain Findings: No fracture or subluxation seen. The intervertebral disc spaces are well maintained. Pre-ve rtebral soft tissues are unremarkable. Impression: No significant abnormality seen. Reviewed, dictated and finalized at location . CAL REVIEW COORDINATOR Impression: No significant abnormality seen.
== END 2023-07-17 12:11 | disposition home or self-care (01) ==
LOC: ANHBWCIMG 12:11
PROVIDERS: PCP Nurse Practitioner Adult Health; Visit Provider Nurse Practitioner Adult Health
DX: M54.2 Cervicalgia (principal)
CPT/HCPCS: 72040

== ENCOUNTER 2023-09-08 16:46 | Emergency (ER) | payer OTHER, SELFPAY ==
[2023-09-08 16:52] VITALS: BP 135/80; PULSE 99; RESP 16; TEMP 36.8; O2SAT 100
--- NOTE | 2023-09-08 17:11 | ED.EYEPROB ---
HPI - Eye Problem General Chief complaint: Eye Problems Stated complaint: Eye Problem History of Present Illness HPI Narrative: Patient presents with left eye drainage and matted shut this morning. Patient states her daughter has pinkeye at home and thinks she has caught it from her daughter. No vision problems does not were contacts Related Data Allergies Allergy/AdvReac Type Severity Reaction Status Date / Time No Known Allergies Allergy Unknown Verified 09/08/23 16:50 Review of Systems Review of Systems: CONSTITUTIONAL: Denies fever, chills, or sweats. EYES: Denies visual changes, redness, or discharge. ENT: Denies rhinorrhea, congestion, sore throat, or otalgia. CARDIOVASCULAR: Denies chest pain, palpitations, or edema. RESPIRATORY: Denies cough or dyspnea. GASTROINTESTINAL: Denies abdominal pain, nausea, vomiting, or diarrhea. GENITOURINARY: Denies dysuria or hematuria. SKIN: Denies rash or itching. MUSCULOSKELETAL: Denies back pain, joint pain, or myalgia. NEUROLOGIC: Denies headache, numbness, or weakness. PSYCHIATRIC: Denies anxiety or depression. [facility] Past Medical History Medical History No pertinent past medical history Surgical History Surgical History No pertinent past surgical history Family History Family History Mother Family history non-contributory Social History Social History (Updated 06/24/23 @ 14:06 by Vesta Drake MA) Smoking status: Never smoker Substance use: never Lack of Transportation: No Current Housing: I Have Housing Concerned About Future Housing: No Difficulty Paying Gas/Electric Bills: No Difficulty Paying for Meds: No Education: High School Diploma/GED Difficulty w/ Childcare or Family Care: No Living arrangements: with family Gender identity (if verbalized by the patient): Female Sexual Orientation (if Verbalized by the Patient): Straight or Heterosexual Spiritual care concerns: No Agree to blood products: Yes Comments At time of signature, agree with nursing past medical, surgical, social and family history. There is no relevant family history pertinent to the presenting complaint Exam Narrative: GENERAL: Well-appearing, well-nourished, and in no acute distress. HEAD: Normocephalic, atraumatic. EYES: PERRLA and EOMI. ENT: Nares clear, no rhinorrhea or epistaxis. Mucous membranes moist. NECK: Supple. CHEST: Clear to auscultation. No respiratory distress. HEART: Regular rate and rhythm. No murmur heard. Normal peripheral pulses. ABDOMEN: Soft, nontender, nondistended, normal active bowel sounds. EXTREMITIES: Normal range of motion. No edema. SKIN: Warm, dry, no rash. NEURO: No focal deficits. Alert and oriented x3. [place] Coma Scale Eye Opening: Spontaneous 4 [place] Coma Scale Motor: Obeys Commands 6 [place] Coma Scale Verbal: Oriented 5 [place] Coma Scale Total 15 Eyes: Conjunctivae: conjunctival abnormality left conjunctival injection Course Course Level of Care: Express Care Visit Vital Signs Vital signs: Vital Signs Temperature 36.8 C 09/08/23 16:52 Pulse Rate 99 09/08/23 16:52 Respiratory Rate 16 09/08/23 16:52 Blood Pressure 135/80 09/08/23 16:52 Pulse Oximetry 100 09/08/23 16:52 Oxygen Delivery Room Air 09/08/23 16:52 Temperature 36.8 C 09/08/23 16:52 Pulse Rate 99 09/08/23 16:52 Respiratory Rate 16 09/08/23 16:52 Blood Pressure 135/80 09/08/23 16:52 Pulse Oximetry 100 09/08/23 16:52 Oxygen Delivery Room Air 09/08/23 16:52 Discharge Plan Discharge Clinical Impression: Bacterial conjunctivitis Patient Disposition: Home, Self-Care Condition: Stable Instructions: Antibiotic Form Additional Instructions: Conjunctivitis is spread by [id number] contact or by
== END 2023-09-08 17:15 | disposition home or self-care (01) ==
PROVIDERS: Emergency Provider Nurse Practitioner Family; PCP Nurse Practitioner Adult Health
DX: H10.9 Unspecified conjunctivitis (principal)
CPT/HCPCS: 99213; G0463

== ENCOUNTER 2023-09-27 10:05 | Outpatient (CLI) | payer OTHER, SELFPAY ==
[2023-09-27 11:04] LABS: Basophils Absolute Auto 0.1 K/mm3 (0.0-0.1); Basophils Percent Auto 0.9 % (0.2-1.2); Eosinophils Absolute Auto 0.1 K/mm3 (0-0.3); Eosinophils Percent Auto 2.2 % (0-4.4); Hematocrit 44.6 % (37.0-47.0); Hemoglobin 14.5 g/dL (12.0-15.0); Immature Granulocyte Absolute 0.01 K/mm3 (0.00-0.031); Immature Granulocyte Percent A 0.2 % (0-0.5); Lymphocytes Absolute Auto 1.36 K/mm3 (0.9-3.2); Lymphocytes Percent Auto 24.5 % (18.3-44.2); Mean Corpuscular HGB Conc 32.5 g/dl (32-36); Mean Corpuscular Hemoglobin 28.7 pg (26-34); Mean Corpuscular Volume 88.3 fl (80-100); Mean Platelet Volume 10.1 fl (7.4-10.4); Monocytes Absolute Auto 0.4 K/mm3 (0.1-0.6); Monocytes Percent Auto 7.8 % (2.6-8.5); Neutrophils Absolute Auto 3.6 K/mm3 (1.3-6.7); Neutrophils Percent Auto 64.4 % (45.5-73.1); Platelet Count Result 298 k/mm3 (150-375); Red Blood Count 5.05 M/mm3 (4.2-5.4); Red Cell Distribution Width 12.7 % (11.5-14.5); White Blood Count 5.5 K/mm3 (4.5-10.0)
[2023-09-27 11:21] LABS: Alanine Aminotransferase 13 U/L (6-35); Albumin Level 4.5 g/dL (3.5-5.1); Alkaline Phosphatase 65 U/L (38-126); Anion Gap 9 mmol/L (8-16); Aspartate Amino Transferase 24 U/L (14-36); Bilirubin,Total 0.7 mg/dL (0.2-1.3); Blood Urea Nitrogen 7 mg/dL (7-17); Calcium 9.6 mg/dL (8.4-10.2); Carbon Dioxide 25 mmol/L (22-30); Chloride 105 mmol/L (98-107); Estimated Glomerular Filt Rate > 60; Glucose 100 mg/dL (65-110); Sodium 139 mmol/L (137-145)
[2023-09-27 11:46] LABS: Thyroid Stimulating Hormone 0.861 uIU/mL (0.465-4.680)
--- NOTE | 2023-10-02 15:58 | WPDHOLTEREM ---
Holter/Event Monitor Holter/Event Monitor Date of procedure: 09/27/23 Holter/Event Procedure: 48 Hr Holter Monitor Indications: Palpitations Conclusion: 1. 48 hour holter monitor on 09/27/23. 2. Underlying rhythm is sinus rhythm. HR range 49-150 bpm; average HR 77 bpm. HR at 49 bpm was at 06:37. HR at 150 bpm was at 13:52. 3. There are 17 premature supraventricular complexes and 3 supraventricular couplets. No supraventricular tachycardia. 4. No premature ventricular complexes. No ventricular tachycardia. 5. No sinoatrial or atrioventricular blocks. No significant pauses greater than 2 seconds. 6. Patient reports symptoms of palpitations which demonstrate sinus rhythm at 94 bpm.
== END 2023-09-27 10:06 | disposition home or self-care (01) ==
PROVIDERS: PCP Nurse Practitioner Adult Health; Visit Provider Nurse Practitioner Adult Health
DX: R00.2 Palpitations (principal); R22.2 Localized swelling, mass and lump, trunk; Z13.9 Encounter for screening, unspecified
CPT/HCPCS: 36415; 80053; 84443; 85025; 93225; 93226

== ENCOUNTER 2023-10-04 13:24 | Outpatient (CLI) | payer OTHER, SELFPAY ==
--- NOTE | ~2023-10-04 | US_ITS ---
EXAMINATION: US soft tissue head and neck DATE: 10/04/2023 14:10 INDICATION: Localized swelling, mass and lump, trunk. TECHNIQUE: Multiple grayscale and Doppler ultrasound images of the head and neck were obtained. COMPARISON: None FINDINGS: There is a normal lymph node in the left supraclavicular region in the patient's area of co ncern. IMPRESSION: 1. No abnormal mass or lymphadenopathy. Reviewed, dictated and finalized at location E. [employer]
== END 2023-10-04 13:25 | disposition home or self-care (01) ==
PROVIDERS: PCP Nurse Practitioner Adult Health; Visit Provider Nurse Practitioner Adult Health
DX: R22.2 Localized swelling, mass and lump, trunk (principal)
CPT/HCPCS: 76536

== ENCOUNTER 2023-10-24 15:48 | Emergency (ER) | payer OTHER, SELFPAY ==
--- NOTE | ~2023-10-24 | XR_ITS ---
EXAMINATION: XR hand RT min 3V DATE: 10/24/2023 16:17 INDICATION: Right hand injury. TECHNIQUE: 4 views of right hand were obtained. COMPARISON: Right hand radiographs 11/26/2022 FINDINGS: Bone alignment is normal. No fracture. Joint spaces are normal. IMPRESSION: 1. Normal right hand. Reviewed, dictated and finalized at location E. HOUSE RECORD CLERK IMPRESSION: 1. Normal right hand.
[2023-10-24 16:11] VITALS: BP 148/87; PULSE 79; RESP 16; TEMP 37.6; O2SAT 100
--- NOTE | 2023-10-24 16:18 | ED.UPPEXIN ---
HPI - Extremity Injury (Upper) General Chief Complaint: Extremity Injury, Upper Stated Complaint: Left Middle Finger Injury Time Seen by Provider: 10/24/23 16:18 Source: patient, RN notes reviewed and old records reviewed Mode of arrival: ambulatory Limitations: no limitations History of Present Illness HPI narrative: 33-year-old female presents to the [facility] with pain to fingers 2 3 and 4 of the right hand. Patient states around 3:00 p.m. her fingers were smashed in a metal door. Mild swelling, decreased range of motion secondary to pain. Capillary refill under 2 seconds. Sensation intact Onset (ago): minute(s) (45) Related Data Allergies Allergy/AdvReac Type Severity Reaction Status Date / Time No Known Allergies Allergy Unknown Verified 09/12/23 14:22 Review of Systems Review of Systems: All systems reviewed & are unremarkable except as noted in HPI and below Constitutional: Constitutional: Reports no additional constitutional complaints Eyes: Eyes: Reports no additional eye complaints Cardiovascular: Cardiovascular: Reports no additional cardiovascular complaints, Denies chest pain and Denies dyspnea Respiratory: Respiratory: Reports no additional respiratory complaints, Denies chest congestion, Denies cough and Denies dyspnea Musculoskeletal: Musculoskeletal: Reports as per HPI, Reports arthralgias, Reports joint swelling and Reports limited range of motion Integumentary/Breasts: Skin/Breast: Reports system reviewed and no additional complaints, except as docu Neurologic: Reports system reviewed and no additional complaints, except as documented Psychiatric: Psychiatric: Reports no additional psychiatric complaints Allergic/Immunologic: Allergic/Immunologic: Reports no additional allergic/immunologic complaints PMFSH Past Medical History Medical History No pertinent past medical history Surgical History Surgical History No pertinent past surgical history Family History Family History Mother Family history non-contributory Social History Social History Smoking status: Never smoker Substance use: never Lack of Transportation: No Current Housing: I Have Housing Concerned About Future Housing: No Difficulty Paying Gas/Electric Bills: No Difficulty Paying for Meds: No Education: High School Diploma/GED Difficulty w/ Childcare or Family Care: No Living arrangements: with family Gender identity (if verbalized by the patient): Female Sexual Orientation (if Verbalized by the Patient): Straight or Heterosexual Spiritual care concerns: No Agree to blood products: Yes Comments At the time of my signature, I reviewed and agree with the nursing past medical, surgical, social, and family history. There is no relevant family history pertinent to the patient complaint. Exam Const: General: cooperative, healthy appearing, comfortable, no acute distress, well developed, alert and well nourished Nutritional Appearance: well nourished Orientation/consciousness: patient oriented x3 Limitations: no limitations HENMT: Head: normal to inspection Ears: hearing grossly normal bilaterally and external ears normal Face/Nose/Sinus: Normal external nose present, Normal nares present, Normal nasal mucous membranes and turbinates present, normal facial exam and face symmetric Face and sinus: normal facial exam and face symmetric Eyes: General: appearance normal, both eyes and all related structures Alignment and Position: alignment normal Periorbital: periorbital findings normal Pupils: Equal, round and reactive pupils present EOM: EOMs intact bilaterally Neck: Neck: normal visual inspection, full ROM, no lymphadenopathy and no meningeal signs Chest: Chest palpation & inspecti
== END 2023-10-24 16:33 | disposition home or self-care (01) ==
PROVIDERS: Emergency Provider Nurse Practitioner; PCP Nurse Practitioner Adult Health
DX: S60.021A Contusion of right index finger without damage to nail, initial encounter (principal); S60.031A Contusion of right middle finger without damage to nail, initial encounter; S60.041A Contusion of right ring finger without damage to nail, initial encounter; W23.0XXA Caught, crushed, jammed, or pinched between moving objects, initial encounter
CPT/HCPCS: 73130; 99213; G0463

== ENCOUNTER 2023-12-29 13:08 | Emergency (ER) | payer OTHER, SELFPAY ==
[2023-12-29 13:13] VITALS: BP 119/82; PULSE 92; RESP 16; TEMP 37.7; O2SAT 100
--- NOTE | 2023-12-29 13:22 | ED.URI ---
HPI - URI/Sore Throat General Chief Complaint: Upper Respiratory Infection Stated Complaint: Congestion/Cough History of Present Illness HPI Narrative: PATIENT PRESENTS WITH SINUS PRESSURE AND TENDERNESS PATIENT HAS NOT TAKING ANYTHING [id number] FOR SYMPTOMS. NO FEVER NO BODY ACHES AND SHORTNESS OF BREATH AND CHILLS CHEST PAIN. Related Data Allergies Allergy/AdvReac Type Severity Reaction Status Date / Time No Known Allergies Allergy Unknown Verified 12/29/23 13:12 Review of Systems Review of Systems: CONSTITUTIONAL: DENIES CHILLS, OR SWEATS. REPORTS FEVER AND GENERALIZED BODY ACHES EYES: DENIES VISUAL CHANGES, REDNESS, OR DISCHARGE. ENT: DENIES OTALGIA. REPORTS NASAL CONGESTION RUNNY NOSE AND SORE THROAT CARDIOVASCULAR: DENIES CHEST PAIN, PALPITATIONS, OR EDEMA. RESPIRATORY: DENIES DYSPNEA. REPORTS OCCASIONAL COUGH GASTROINTESTINAL: DENIES ABDOMINAL PAIN, NAUSEA, VOMITING, OR DIARRHEA. GENITOURINARY: DENIES DYSURIA OR HEMATURIA. SKIN: DENIES RASH OR ITCHING. MUSCULOSKELETAL: DENIES BACK PAIN, JOINT PAIN, OR MYALGIA. REPORTS GENERALIZED BODY ACHES NEUROLOGIC: DENIES HEADACHE, NUMBNESS, OR WEAKNESS. PSYCHIATRIC: DENIES ANXIETY OR DEPRESSION. [facility] Past Medical History Medical History No pertinent past medical history Surgical History Surgical History No pertinent past surgical history Family History Family History Mother Family history non-contributory Social History Social History Smoking status: Never smoker Substance use: never Lack of Transportation: No Current Housing: I Have Housing Concerned About Future Housing: No Difficulty Paying Gas/Electric Bills: No Difficulty Paying for Meds: No Education: High School Diploma/GED Difficulty w/ Childcare or Family Care: No Living arrangements: with family Gender identity (if verbalized by the patient): Female Sexual Orientation (if Verbalized by the Patient): Straight or Heterosexual Spiritual care concerns: No Agree to blood products: Yes Comments AT TIME OF SIGNATURE, AGREE WITH NURSING PAST MEDICAL, SURGICAL, SOCIAL AND FAMILY HISTORY. THERE IS NO RELEVANT FAMILY HISTORY PERTINENT TO THE PRESENTING COMPLAINT Exam Narrative: THE PATIENT IS A WELL-DEVELOPED, WELL-NOURISHED IN NO ACUTE DISTRESS. SKIN: SKIN IS WARM AND DRY WITHOUT ERYTHEMA, SWELLING OR EXUDATE. THERE IS GOOD TURGOR. NO TENTING. HEAD: ATRAUMATIC. NORMOCEPHALIC. NO TEMPORAL OR SCALP TENDERNESS. EYES: MOIST AND BRIGHT. SCLERA AND CONJUNCTIVAE NORMAL. NO DISCHARGE. PERRLA. EXTRAOCULAR MOTIONS INTACT. GROSS VISUAL ACUITY INTACT. EARS: PINNA IS NORMAL SHAPE AND CONTOUR. CLEAR EXTERNAL AUDITORY CANALS. TM PEARLY TRIPATHI WITH GOOD CONE OF LIGHT, NO ERYTHEMA OR SUPPURATION. BILATERAL CERUMEN NOTED NO GROSS HEARING DEFICIT. NOSE: PINK, MOIST MUCOSA WITH GOOD AIR MOVEMENT. CLEAR RHINORRHEA WITHOUT NASAL FLARING. SEPTUM MIDLINE. MOUTH: MOIST MUCOUS MEMBRANES. THROAT; MILD ERYTHEMA NOTED TO POSTERIOR OROPHARYNX WITH MODERATE POSTNASAL DRAINAGE. WITHOUT EXUDATE OR ULCERATION.. UVULA MIDLINE. NORMAL MOVEMENT OF SOFT PALATE. NECK: SUPPLE AND NONTENDER WITH FULL RANGE OF MOTION WITHOUT DISCOMFORT. NO MENINGEAL SIGNS. LUNGS: EQUAL AND BILATERAL BREATH SOUNDS WITHOUT WHEEZES, RALES OR RHONCHI. CHEST: THE CHEST WALL IS WITHOUT RETRACTIONS OR USE OF ACCESSORY MUSCLES. HEART: HAS A REGULAR RATE AND RHYTHM WITHOUT MURMUR, GALLOPS, CLICK OR RUB. ABDOMEN: SOFT, NONTENDER WITH POSITIVE ACTIVE BOWEL SOUNDS. NO REBOUND TENDERNESS. EXTREMITIES: WITHOUT CYANOSIS, CLUBBING OR EDEMA. EQUAL 2+ DISTAL PULSES AND 2 SECOND CAPILLARY REFILL NOTED. NEUROLOGIC: ALERT, ACTIVE, . THE PATIENT MOVES ALL EXTREMITIES WITH NORMAL MUSCLE STRENGTH. NORMAL MUSCLE TONE IS NOTED. NORMAL COORDINATIO
== END 2023-12-29 13:27 | disposition home or self-care (01) ==
PROVIDERS: Emergency Provider Nurse Practitioner Family; PCP Nurse Practitioner Adult Health
DX: J32.9 Chronic sinusitis, unspecified (principal)
CPT/HCPCS: 99213; G0463

== ENCOUNTER 2024-03-12 14:30 | Emergency (ER) | payer OTHER, SELFPAY ==
[2024-03-12 14:36] VITALS: BP 122/78; PULSE 74; RESP 16; TEMP 37.1; O2SAT 100
--- NOTE | 2024-03-12 15:08 | ED.SKABFB ---
HPI - Skin/Abscess/Foreign Bdy General Chief complaint: Skin/Abscess/Foreign Body Stated complaint: hands / feet itching Time Seen by Provider: 03/12/24 14:54 Source: patient and RN notes reviewed Mode of arrival: ambulatory Limitations: no limitations History of Present Illness HPI narrative: Patient presents today complaining of itching a and burning rash to the soles of the feet and palms of the hands x3 days. Denies any additional symptoms. No [id number] treatment prior to arrival. Related Data Allergies Allergy/AdvReac Type Severity Reaction Status Date / Time No Known Allergies Allergy Unknown Verified 12/29/23 13:12 Review of Systems Review of Systems: CONSTITUTIONAL: Denies body aches, fever, chills, or sweats. EYES: Denies visual changes, redness, or discharge. ENT: Denies rhinorrhea, congestion, sore throat, or otalgia. CARDIOVASCULAR: Denies chest pain, palpitations, or edema. RESPIRATORY: Denies cough or dyspnea. GASTROINTESTINAL: Denies abdominal pain, nausea, vomiting, or diarrhea. GENITOURINARY: Denies dysuria or hematuria. SKIN: Rash MUSCULOSKELETAL: Denies back pain, joint pain, or myalgia. NEUROLOGIC: Denies headache, numbness, tingling, or weakness. PSYCH: Denies depression or anxiety. COUNTS INCLUDE 234 BEDS AT THE [facility] Past Medical History Medical History No pertinent past medical history Surgical History Surgical History No pertinent past surgical history Family History Family History Mother Family history non-contributory Social History Social History Smoking status: Never smoker Substance use: never Lack of Transportation: No Current Housing: I Have Housing Concerned About Future Housing: No Difficulty Paying Gas/Electric Bills: No Difficulty Paying for Meds: No Education: High School Diploma/GED Difficulty w/ Childcare or Family Care: No Living arrangements: with family Gender identity (if verbalized by the patient): Female Sexual Orientation (if Verbalized by the Patient): Straight or Heterosexual Spiritual care concerns: No Agree to blood products: Yes Comments At time of signature, I have reviewed and agree with nursing past medical, surgical, social and family history unless otherwise noted. Please see nursing chart for further information. There is no relevant family history pertinent to the presenting complaint Exam Narrative: GENERAL: Well-appearing, well-nourished, and in no acute distress. HEAD: Normocephalic, atraumatic. EYES: EOMI. No redness or drainage. Conjunctivae normal. ENT: Mucous membranes pink and moist. NECK: Normal AROM. CHEST: No respiratory distress. EXTREMITIES: Normal range of motion. No edema. SKIN: Warm, dry. Capillary refill normal. Normal skin turgor. Erythematous macules to the palms of the hands the base the fingers and the soles of the feet at the base of the toes. Patient states it feels like a deep-seated rash, possibly blisters that have not erupted yet. NEURO: No focal deficits. Alert and oriented x3. Gait steady. PSYCH: Normal affect. No signs of depression or anxiety. Course Course Level of Care: Express Care Visit Vital Signs Vital signs: Vital Signs Temperature 98.8 F 03/12/24 14:36 Pulse Rate 74 03/12/24 14:36 Respiratory Rate 16 03/12/24 14:36 Blood Pressure 122/78 03/12/24 14:36 Pulse Oximetry 100 03/12/24 14:36 Oxygen Delivery Room Air 03/12/24 14:36 Temperature 98.8 F 03/12/24 14:36 Pulse Rate 74 03/12/24 14:36 Respiratory Rate 16 03/12/24 14:36 Blood Pressure 122/78 03/12/24 14:36 Pulse Oximetry 100 03/12/24 14:36 Oxygen Delivery Room Air 03/12/24 14:36 Reviewed MDM - Skin/Abscess/Foreign Bdy MDM Narrative Me
== END 2024-03-12 15:14 | disposition home or self-care (01) ==
PROVIDERS: Emergency Provider Nurse Practitioner; PCP Nurse Practitioner Adult Health
DX: L30.1 Dyshidrosis [pompholyx] (principal)
CPT/HCPCS: 99213; G0463

== ENCOUNTER 2024-06-22 13:34 | Emergency (ER) | payer OTHER, SELFPAY ==
--- NOTE | 2024-06-22 13:39 | ED.URI ---
HPI - URI/Sore Throat General Chief Complaint: Upper Respiratory Infection Stated Complaint: Sinus Congestion/Headache Time Seen by Provider: 06/22/24 13:57 Source: patient Mode of arrival: ambulatory Limitations: no limitations History of Present Illness HPI Narrative: Patient is a 33-year-old female presents with 5 days of sinus congestion and headache. Intermittent sore throat. Patient is currently 7 weeks . Patient is with taking Robitussin and cough drops Related Data Allergies Allergy/AdvReac Type Severity Reaction Status Date / Time No Known Allergies Allergy Unknown Verified 03/24/24 15:12 Review of Systems Review of Systems: All systems reviewed & are unremarkable except as noted in HPI and below Constitutional: Constitutional: Denies body ache(s), Denies chills, Denies fatigue, Denies fever(s), Denies headache(s), Denies malaise and Denies weakness Eyes: Eyes: Denies blurry vision, Denies itchy eyes and Denies loss of vision ENT: Denies otalgia, Denies headache(s), Reports nasal congestion, Denies sinus pain and Reports sore throat Cardiovascular: Cardiovascular: Denies chest pain, Denies irregular heart rhythm and Denies dyspnea Respiratory: Respiratory: Reports cough and Denies dyspnea Gastrointestinal: Gastrointestinal: Denies abdominal pain, Denies diarrhea, Denies nausea and Denies vomiting Musculoskeletal: Musculoskeletal: Denies back pain, Denies myalgias and Denies arthralgias Integumentary/Breasts: Skin/Breast: Denies pruritus and Denies rash Neurologic: Denies headache(s), Denies loss of vision and Denies weakness Psychiatric: Psychiatric: Reports no additional psychiatric complaints Endocrine: Endocrine: Denies fatigue Allergic/Immunologic: Allergic/Immunologic: Denies itchy eyes PMFSH Past Medical History Medical History No pertinent past medical history Surgical History Surgical History H/O wisdom tooth extraction History of hysteroscopy D & C Family History Family History Mother No problems noted. Other Family history non-contributory Social History Social History Smoking status: Never smoker Alcohol intake: former Substance use: never Substance use type: does not use Do You Feel Safe in your Home?: Yes Lack of Transportation: No Current Housing: I Have Housing Concerned About Future Housing: No Difficulty Paying Gas/Electric Bills: No Difficulty Paying for Meds: No Education: High School Diploma/GED Difficulty w/ Childcare or Family Care: No Living arrangements: with family Occupation/Education: occupation Gender identity (if verbalized by the patient): Female Sexual Orientation (if Verbalized by the Patient): Straight or Heterosexual Spiritual care concerns: No Agree to blood products: Yes Comments At time of signature, agree with nursing past medical, surgical, social and family history. There is no relevant family history pertinent to the presenting complaint. Exam Const: General: cooperative, healthy appearing, comfortable, no acute distress and well nourished Nutritional Appearance: well nourished Orientation/consciousness: patient oriented x3 Limitations: no limitations HENMT: Head: normal to inspection, normocephalic and atraumatic Ears: hearing grossly normal bilaterally, external ears normal, TM's normal bilaterally, EAC's normal and no periauricular adenopathy Face/Nose/Sinus: Normal external nose present, Abnormal mucous membranes and turbinates present erythematous bilateral and diffuse, normal facial exam, sinuses nontender and face symmetric Face and sinus: normal facial exam, sinuses nontender and face symmetric Mouth: Yes Normal oral and palatal mucosa present, Yes lip normal, Yes
[2024-06-22 13:40] VITALS: BP 115/74; PULSE 84; RESP 15; TEMP 37.2; O2SAT 100
[2024-06-22 14:11] LABS: EDSTREPNEGPOS1 Negative (Negative)
== END 2024-06-22 14:20 | disposition home or self-care (01) ==
PROVIDERS: Emergency Provider Nurse Practitioner Family; PCP Nurse Practitioner Adult Health
DX: O99.511 Diseases of the respiratory system complicating pregnancy, first trimester (principal); Z3A.01 Less than 8 weeks gestation of pregnancy; J06.9 Acute upper respiratory infection, unspecified
CPT/HCPCS: 87081; 87880; 99213; G0463

== ENCOUNTER 2024-09-29 16:11 | Emergency (ER) | payer OTHER, SELFPAY ==
--- OUTSIDE RECORDS SUMMARY | 2024-09-29 16:14 | XMS_ITS | Referral Summary ---
Author Organization [facility] Medical Office Building [address] Address [address] [place] [address] Care Team Providers Care Vehicle Upholsterer Name Role Phone Berhane Sahu MD Primary Care Provider [phone] Allergies Active Allergy Reactions Criticality Noted Date Comments Sertraline Rash Reaction: Rash, Medications No known medications Active Problems Problem Noted Date Diagnosed Date Lipid screening 11/15/2021 Assessment & Plan (11/15/2021 1:05 PM CDT): Will check fasting labs, and notify patient as soon as results are received. Scalp cyst 11/15/2021 Assessment & Plan (11/15/2021 1:11 PM CDT): Scalp nodule approximately 1 cm, right head. Patient is established with Dermatology, encouraged her to follow-up with dermatology for further evaluation. No evidence of infection. Will notify our office if she requires a referral. BMI 23.0-23.9, adult 10/20/2021 Assessment & Plan (10/20/2021 2:50 PM PACKAGING TECH): Discussed healthy diet and importance of regular physical activity. Refused influenza vaccine 10/20/2021 Encounter to establish care 10/20/2021 Assessment & Plan (11/15/2021 1:13 PM CDT): Preventive exam; reviewed recommended preventive screenings and vaccinations. Encourage annual flu vaccine. Wear sunscreen/protective clothing when outdoors. last Pap, 2019. No concerns for STIs at this time, declines screening. Tension headache 10/20/2021 Assessment & Plan (11/15/2021 10:55 AM CDT): Discussed medication overuse headaches. Discussed importance of healthy lifestyle including healthy sleep habits, healthy diet and weekly exercise. Will trial muscle relaxer as needed at HS , and monitor response. Bruising 04/30/2017 Assessment & Plan (04/30/2017 11:41 AM CDT): Will check iron levels and cbc as well as TSH and CMP. If labs come back normal, may likely be related to inadvertent bumping on objects.. ITZEL (generalized anxiety disorder) 05/11/2014 Overview (12/06/2016): Anxiety state Assessment & Plan (11/15/2021 10:12 AM CDT): Patient feels anxiety is well controlled on current dose of Lexapro. She denies any sleep disturbances or depressive symptoms. She follows with Psychiatry, Dana Guardado every 3 months. Assessment & Plan (04/30/2017 11:39 AM CDT): Discussed how SSRIs can help with anxiety on a daily basis versus benzodiazepines which can be used as needed. Patient is currently breast-feeding and does not wish to start an SSRI after we discussed risks and benefits. I gave her Ativan to help as needed for acute anxiety. We also discussed medication profile and breast feeding concerns with this medication as well. She plans on breast-feeding until baby is 1 year which is about 4 months from now. I told her to come back in rediscuss anxiety when she is done . Patient was agreeable with this plan of care and follow Personal history of tobacco use 09/09/2013 Overview (12/05/2016): Tobacco use Assessment & Plan (10/20/2021 2:52 PM PACKAGING TECH): Quit smoking in 2015. 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 Will recheck labs today. Immunizations Name Administration Dates Next Due Influenza, Unspecified 11/29/2022(Deferr ed: Patient Refused),05/03/2022(Deferred: Patient Refused),08/05/2017(Deferred: Patient Refused) Social History Tobacco Use Types Packs/Day Years Used Date Smoking Tobacco: Former Smokeless Tobacco: Never Comments:Smoking History Pac ks/day: 0.5 Packs Alcohol Use Standard Drinks/Week Comments No 0 (1 standard drink = 0.6 oz pur e alcohol) AUDIT-C Answer Date Recorded Q1: How often do you have a drink containing alcohol? Never 01/31/2023 Q2: How many drinks containi ng alcohol do you have on a typical day when you are drinking? Patient does not drink Q3: How often do you have si x or more drinks on one occasion? Never 01/31/2023 PHQ-2 Answer Date Recorded PHQ-2 Total Score (If total score is 3 or more points, staff should administer the PHQ-9) 0 01/31/2023 Comments No Sex and Gender Information Value Date Recorded Sex Assigned at Not on file Legal Sex Female 2:58 AM PACKAGING TECH Gender Identity Not on file Sexual Orientation Not on file Last Filed Vital Signs Vital Sign Reading Time Taken Comments Blood Pressure 122/78 01/31/2023 2:55 PM CDT Pulse 89 01/31/2023 2:55 PM CDT Temperature 37.3 ??C (99.2 ??F) 01/31/2023 2:55 PM CD T Respiratory Rate 18 01/31/2023 2:55 PM CDT Oxygen Saturation 99% 01/31/2023 2:55 PM CDT Inhaled Oxygen Concentration - - Weight 58.5 kg (129 lb) 01/31/2023 2:55 PM CDT Height 160 cm (5' 2.99 ) 01/31/2023 2:55 PM CDT Body Mass Index 22.86 01/31/2023 2:55 PM CDT Plan of Treatment Not on file Insurance [facility] Member Subscriber Plan / Payer (Ef fective 2021-Present) Name:Lashae Oscar Relation to Subscriber:Self Name:Lashae Oscar Payer ID:[id number] (NAIC) Group ID:Not on file Type:MEDICAID RISK OTHER Address: [address] [place], [place] [id number] [place] [address] [facility] Care Teams Vehicle Upholsterer Relationship Specialty Start Date End Date Berhane Sahu MD [address] [place] [address] PCP - General Family Medicine 10/20/21
--- OUTSIDE RECORDS SUMMARY | 2024-09-29 16:14 | XMS_ITS | Clinical Summary ---
Author Organization [facility] Medical Office Building [address] Address [address] [place] [address] Care Team Providers Care Complaint Supervisor Name Role Phone Berhane Sahu MD Primary Care Provider [phone] Allergies Active Allergy Reactions Criticality Noted Date [...] 10/20/2021 Assessment & Plan (10/20/2021 2:50 PM CIA AGENT): Discussed healthy diet and importance of regular [...] use Assessment & Plan (10/20/2021 2:52 PM CIA AGENT): Quit smoking in 2015. 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 Will recheck labs today. Immunizations Name Administration Dates Next Due Influenza, Unspecified 11/29/2022(Deferr ed: Patient Refused),05/03/2022(Deferred: Patient Refused),08/05/2017(Deferred: Patient Refused) Surgical History Surgery Date Site/Laterality Comments OTHER SURGICAL HISTORY 15 week demise: D & C for retained placenta OTHER SURGICAL HISTORY 09/02/2012 - 09/01/2013 : spontaneous OTHER SURGICAL HISTORY 09/02/2012 - 09/01/2013 Miscarriage: D & C DILATION AND CURETTAGE OF UTERUS Medical History Medical History Date Comments Hx Other Medical 15 week d emise Anxiety Social History Tobacco Use Types Packs/Day Years [...] on file Legal Sex Female 2:58 AM CIA AGENT Gender Identity Not on file Sexual Orientation Not on file Obstetrics History Last Filed Vital Signs Vital Sign Reading [...] 01/31/2023 2:55 PM CDT Plan of Treatment Health Maintenance Due Date Last Done Comments Cervical Cancer Screening 1991 Hepatitis C Screening 1991 DTaP/Tdap/Td Vaccine (1 - Tdap) 2002 Varicella Vaccines (1 of 2 - 13+ 2-dose series) 2004 Hepatitis B Screening 2009 Regular Well Visit/Exam 18-64 10/20/2022 10/20/2021 Depression Screening 02/01/2024 01/31/2023, 12/13/2022, 10/20/2021, Additional history exists Influenza Vaccine (#1) 2024 HPV Vaccines Aged Out No longer eligi ble based on patient's age to complete this topic Pneumococcal vaccine <65 Aged Out No longer eligible based on patient's age to complete this topic Insurance [facility] Care Teams Complaint Supervisor Relationship Specialty Start Date End Date Berhane Sahu MD [address] [place] [address] PCP - General Family Medicine 10/20/21
--- OUTSIDE RECORDS SUMMARY | 2024-09-29 16:14 | XMS_ITS | Referral Summary ---
Author Organization [facility] Address [address] [place] [address] Care Team Providers Care Manager Registration Name Role Phone Unavailable Primary Care Provider Unavailabl e Source Comments [facility],non-owned Affiliates and Associated Physician Practices is amultiple site organization consisting of ambulatory clinics and hospital sitesin [place], [place], [place] and [place]. This disclosure is being madepursuant to the Care Everywhere program and may not contain all information available regarding this patient. Last updated 18.[facility] Allergies Active Allergy Reactions Criticality Noted Date Comments Sertraline Rash Medium Reaction: Rash, Medications * Be aware that medications may not be up to date on this document. Alwaysverify current medications with the patient. Medication Sig Dispensed Refills Start Date End Date Status Vrgokdhj-Vyi-Vx-FA ( VITAMIN WITH IRON) tablet Take 1 tablet by mouth once daily Active Active Problems Problem Noted Date Diagnosed Date Supervision of high-risk of luz jelena kyle 04/16/2018 Overview (04/22/2018): LMP consistent with 6 week crown rump length Baseline labs H&H 14.1/42.2 Platelets 364 O positive/antibody negative RI immune / HIV NR / HBsAg NR GC/ CT neg Pap (December,) NILM NIPT LOW RISK female Poor growth affecting management of mother, antepartum 04/09/2018 Overview (04/22/2018): Plan: Aneuploidy screening (cell free DNA)- low risk, female CMV and toxoplasma IgG/ IgM negative Cardiolipin in beta 2 glycoprotein IgG/IgM negative No lupus anticoagulant detected Serial growth every 2-4 weeks Weekly 10 point biophysical profile starting at 30 weeks until delivery Delivery at 39 weeks, unless indicated earlier History of stillbirth 04/09/2018 Social History Tobacco Use Types Packs/Day Years Used Date Smoking Tobacco: Former Cigarettes 2015 Smokeless Tobacco: Never Alcohol Use Standard Drinks/Week Comments No 0 (1 standard drink = 0.6 oz pur e alcohol) Sex and Gender Information Value Date Recorded Sex Assigned at Not on file Gender Identity Not on file Sexual Orientation Not on file Last Filed Vital Signs Vital Sign Reading Time Taken Comments Blood Pressure 118/77 06/27/2018 8:22 AM CDT Pulse 90 06/27/2018 8:22 AM CDT Temperature - - Respiratory Rate - - Oxygen Saturation - - Inhaled Oxygen Concentration - - Weight 67.1 kg (148 lb) 05/28/2018 9:07 AM CDT Height 162.6 cm (5' 4 ) 05/28/2018 9:07 AM CDT Body Mass Index 25.4 05/28/2018 9:07 AM CDT Plan of Treatment Not on file
--- OUTSIDE RECORDS SUMMARY | 2024-09-29 16:14 | XMS_ITS | Clinical Summary ---
Author Organization [facility] [employer] Address [address] [place] [address] Care Team Providers Care Airplane Gastank Liner Assembler Name Role Phone Unavailable Primary Care Provider Unavailabl e Source Comments [facility] [employer],non-owned Affiliates and Associated Physician Practices is amultiple site organization consisting of ambulatory clinics and hospital sitesin [place], [place], [place] and [place]. This disclosure is being madepursuant to the Care Everywhere program and may not contain all information available regarding this patient. Last updated 18.[facility] [employer] Allergies Active Allergy Reactions Criticality Noted Date Comments Sertraline Rash Medium Reaction: Rash, Medications * Be aware that medications may not be up to date on this document. Alwaysverify current medications with the patient. Medication Sig Dispensed Refills Start Date End Date Status Rxfzrbno-Kez-Ib-FA ( VITAMIN WITH IRON) tablet Take 1 [...] 05/28/2018 9:07 AM CDT Plan of Treatment Health Maintenance Due Date Last Done Comments PAP SMEAR 1990 HIV SCREENING 2006 HEPATITIS C SCREENING 08/23/2009 DTAP/TDAP/TD VACCINES (1 - Tdap) 2010 HEPATITIS B VACCINE (1 of 3 - 19+ 3-dose series) 2010 COVID-19 VACCINE (1 - 2023-2 5 season) 2024 INFLUENZA VACCINE (#1) 2024 DEPRESSION SCREENING 09/02/2024 ZOSTER VACCINE (1 of 2) 2041 HIB VACCINE Aged Out No longer eligi ble based on patient's age to complete this topic HPV VACCINE Aged Out No longer eligi ble based on patient's age to complete this topic MENINGOCOCCAL (Group B) VACCINE Aged Out No longer eligible based on patient's age to complete this topic MENINGOCOCCAL VACCINE Aged Out No ulises carrie eligible based on patient's age to complete this topic PNEUMOCOCCAL VACCINE Aged Out No long er eligible based on patient's age to complete this topic
--- OUTSIDE RECORDS SUMMARY | 2024-09-29 16:14 | XMS_ITS | Patient Health Summary ---
Author Organization [facility] Address [address] [place] [address] Care Team Providers Care Elementary [employer] Principal Name Role Phone Unavailable Primary Care Provider Unavailabl e Note from [facility],non-owned Affiliates and Associated Physician Practices is amultiple site organization consisting of ambulatory clinics and hospital sitesin [place], [place], [place] and [place]. This disclosure is being madepursuant to the Care Everywhere program and may not contain all information available regarding this patient. Last updated 18.[facility] Allergies * Sertraline(Rash) -Medium Criticality Medications * Be aware that medications may not be up to date on this document. Alwaysverify current medications with the patient. * Vorskxim-Zax-Lv-FA ( VITAMIN WITH IRON) tablet Take 1 tablet by mouth once daily Active Problems Problem Noted Date Diagnosed Date Supervision of high-risk of luz wright 04/16/2018 Poor growth affecting management of mother, antepartum 04/09/2018 History of stillbirth 04/09/2018 Social History Tobacco Use Types Packs/Day Years Used Date Smoking Tobacco: Former Cigarettes 2 - 2015 Smokeless Tobacco: Never Alcohol Use Standard [...] Mass Index 25.4 05/28/2018 9:07 AM CDT Procedures * SONOGRAM - COMPLETE(Performed 06/27/2018) Performed for Poor growth affecting management of mother, antepartum, single or unspecified fetus (HCC), History of stillbirth, Supervision of high- risk of young multigravida (HCC) * BIOPHYSICAL PROFILE W NST(Performed 06/06/2018) Performed for Poor growth affecting management of mother, antepartum, single or unspecified fetus (HCC), History of stillbirth, Supervision of high- risk of young multigravida (HCC) * BIOPHYSICAL PROFILE W NST(Performed 05/28/2018) Performed for Poor growth affecting management of mother, antepartum, single or unspecified fetus (HCC), History of stillbirth, Supervision of high- risk of young multigravida (HCC) * BIOPHYSICAL PROFILE W NST(Performed 05/23/2018) Performed for Poor growth affecting management of mother, antepartum, single or unspecified fetus (HCC), History of stillbirth, Supervision of high- risk of young multigravida (HCC) * SONOGRAM - COMPLETE(Performed 05/09/2018) Performed for Poor growth affecting management of mother, antepartum, single or unspecified fetus (HCC), History of stillbirth, Supervision of high- risk of young multigravida (HCC) * BIOPHYSICAL PROFILE W NST(Performed 05/02/2018) Performed for Poor growth affecting management of mother, antepartum, single or unspecified fetus (HCC), Supervision of high-risk of young multigravida (HCC) * SONOGRAM - COMPLETE(Performed 04/25/2018) Performed for Evaluate anatomy not seen on prior sonogram, Poor growth affecting management of mother, antepartum, single or unspecified fetus (HCC), Supervision of high-risk of youngmultigravida (HCC) * LUPUS ANTICOAGULANT PANEL W RFLX(Performed 04/16/2018) * BETA-2 GLYCOPROTEIN 1 ANTIBODY IGG/IGM/IGA PANEL(Performed 04/16/2018) * CARDIOLIPIN ANTIBODY IGG/IGM PANEL(Performed 04/16/2018) * TOXOPLASMA ANTIBODY IGG/IGM PANEL(Performed 04/16/2018) * CYTOMEGALOVIRUS ANTIBODY IGG/IGM BLOOD(Performed 04/16/2018) * SONOGRAM - COMPLETE(Performed 04/11/2018) Performed for Poor growth affecting management of mother, antepartum, single or unspecified fetus (HCC), History of stillbirth Results * SONOGRAM - COMPLETE (06/27/2018 7:35 AM CDT) Only the most recent of4 resultswithin the time period is included. Anatomical Region Laterality Modality Other 06/27/2018 7:35 AM CDT Narrative 06/27/2018 9:06 AM CDT ? [facility] ?PHONE: ??FAX: Pat. Name: ?RADHA BAXTER. No: ?[id number] Study Date: ?? 06/27/2018 ??7:35am , Age: ? 1990, 27 Pregnancies: ?? 3, Para 1, Ab 1 Height: ? 64 in Weight: ? 116 lb LMP: ?10/03/2017 GA by LMP: ?38w1d GA by Base: ?? 37w5d ?? JUSTIN: 07/13/2018 GA by US: ? 35w0d ?? JUSTIN: 08/01/2018 GA Selected: ??38w1d (LMP) JUSTIN: ?07/10/2018 Referring MD: Cortez Sunshine MD Bander Hand: ??Kelly Moore, JEANETTE, ROMA CPT4: ? [id number] BMI: ?19.91 Hist/Ind: ? 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 GROWTH EVALUATION Measurement ??GA ? Range ? Srce %for GA Ratios ----- ---- ------- BPD ??8.3 cm 33w3d (18x3f-47z3h) Hadl BPD <01 FL/BPD 0.87 (0.71 - 0.87* HC ??30.5 cm 33w6d (85s7q-67k5b) Hadl HC ??<01 FL/AC ??0.23 (0.20 - 0.24) AC ??31.4 cm 35w3d (13b6e-81f1k) Hadl AC ??5% HC/AC ??0.97 (0.90 - 1.09) FL ?? 7.2 cm 37w0d (94o3e-40c6i) Hadl FL ??28% CI ? 0.78 (0.70 - 0.86) GA for sonogram 35w0d (04j4w-57r6s) ?? Weight Estimate: based on (BPD,HC,AC,FL) Hadlock ?Weight: 2680 gm (2289-3071gm) Had ? : 5lbs, 14oz ? Normal: 3256 gm (2442- 4070gm) Had ? Wt% ? 9% for 38w1d Heart Rate: 148 bpm Amniotic Fluid Index: 14.3cm (07.3-23.8) Q1: 5.3cm ??Q3: 4.9cm ??Q4: 4.0cm ?? Biophysical Profile: 06/11 Breathin ?? Tone: 2 ?? NST: 2 Movement: ??2 ?? AFV: ??2 EVAL, PLACENTA Heart Rate: 148 bpm DOPPLER Umbilical - Mid Cord S/D ??2.54(1.55 - 3.35) ? PI ?? 0.95 (0.55 - 1.12) ? Middle Cerebral Artery PSV ??42.7cm/s PI ?? 1.72 (1.19 - 2.20) ? Med PSV 59.0cm/s MoM 0.72(<1.5) Anatomy!Normal!Abnormal!Suboptimal!Comments Diaphragm ?! ?? x ??! ?! ?! Stomach ?! ?? x ??! ?! ?! Bowel ?! ?? x ??! ?! ?! Kidneys ?! ?? x ??! ?! ?! Bladder ?! ?? x ??! ?! ?! CLINICAL SUMMARY Study Number: ??8 No abnormalities were detected during today's limited review of the anatomy. The FHR baseline was 140 bpm during today's reactive NST. The FHR variability was moderate and no decelerations were detected. IMPRESSION: ?? 1) Ortiz gestation, 38w1d by LMP = 6 week ultrasound 2) The accuracy of weight estimates is highly limited at term but today's biometry is again concerning for mildly impaired growth 3) The amniotic fluid volume is within normal limits 4) Umbilical Dopplers reveal no evidence of increased arterial resistance 5) MCA Dopplers reveal no evidence of cephalization 6) Reassuring biophysical profile NOTE: The patient was advised that ultrasound does not allow detection of all structural or chromosomal abnormalities. ?? RECOMMEND: ?? Close maternal movement monitoring while awaiting delivery no later than 39 weeks Thank you for allowing us the opportunity to care for your patient. Lela Olivas MD <Electronic Signature> ??06/27/2018 09:05am Valentina Bharath Prieto MD [facility] ORDERABLES * BIOPHYSICAL PROFILE W NST (06/06/2018 9:09 AM CDT) Only the most recent of4 resultswithin the time period is included. Anatomical Region Laterality Modality Other 06/06/2018 9:09 AM CDT Narrative 06/06/2018 10:24 AM CDT ? [facility] ?PHONE: ??FAX: Pat. Name: ?RADHA BAXTER Pat. No: ?[id number] Study Date: ?? 06/06/2018 ??9:09am , Age: ? 1990, 27 Pregnancies: ?? 3, Para 1, Ab 1 Height: ? 64 in Weight: ? 200 lb LMP: ?10/03/2017 GA by LMP: ?35w1d GA by Base: ?? 34w5d ?? JUSTIN: 07/13/2018 GA by US: ? 32w0d ?? JUSTIN: 08/01/2018 GA Selected: ??34w5d (From Marshal) UJSTIN: ?07/13/2018 Referring MD: Cortez Sunshine MD Bander Hand: ??Zofia Duffy RDMS CPT4: ? [id number] BMI: ?34.33 Hist/Ind: ? 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 GROWTH EVALUATION Measurement ??GA ? Range ? Srce %for GA Ratios ----- ---- ------- BPD ??7.6 cm 30w2d (81j0v-31n8w) Hadl BPD <01 FL/BPD 0.85 (0.71 - 0.87) HC ??29.2 cm 32w2d (93x1a-45k3z) Hadl HC ??<01 FL/AC ??0.22 (0.20 - 0.24) AC ??29.0 cm 33w0d (12n3x-32t8r) Hadl AC ??11% HC/AC ??1.01 (0.94 - 1.13) FL ?? 6.4 cm 33w1d (15n8m-45r9j) Hadl FL ??9% CI ? 0.70 (0.70 - 0.86) HL ?? 5.7 cm 32w6d (80h5d-99b2l) Stephen HL ??20% GA for sonogram 32w0d (42q9c-12b4z) ?? Weight Estimate: based on (BPD,HC,AC,FL) Hadlock ?Weight: 2033 gm (1736-2329gm) Had ? : 4lbs, 7oz ? Normal: 2536 gm (1902- 3170gm) Had ? Wt% ? 6% for 34w5d Heart Rate: 141 bpm Amniotic Fluid Index: 15.1cm (08.0-24.9) Q1: 5.5cm ??Q2: 2.9cm ??Q3: 4.0cm ??Q4: 2.8cm ?? Biophysical Profile: 06/11 Breathin ?? Tone: 2 ?? NST: 2 Movement: ??2 ?? AFV: ??2 EVAL, PLACENTA Presentation: cephalic Placenta: anterior Heart Rate: 141 bpm Amniotic Fluid Volume: normal DOPPLER Umbilical - Mid Cord S/D ??2.47(1.69 - 3.61) ? PI ?? 0.92 (0.61 - 1.19) ? Middle Cerebral Artery PI ?? 2.23 (1.49 - 2.67) ? CLINICAL SUMMARY Study Number: 7 A single fetus is identified in cephalic presentation. ??The measurements today are consistent with adequate growth compared to previous examination, though the EFW continues to plot below the 10th percentile line. ??The AC is in the normal range and demonstrates appropriate interval growth. ??The JUSTIN selected is based on a prior ultrasound examination. ??The amniotic fluid volume appears normal. ??The placenta is anterior. ?? IMPRESSION: ?? Live, ortiz IUP at 34w5d size smaller than expected for established JUSTIN. ??Probable SGA rather than growth restriction. Normal amniotic fluid volume Reassuring testing RECOMMEND: ?? Follow up ultrasound in 3 weeks for growth Continue weekly BPP/KATHERIN/NST/Doppler studies through delivery Patient was sent to the [facility] for evaluation due to complaints of contractions Thank you for allowing us the opportunity to care for your patient. Adriane Arriaga MD <Electronic Signature> ??06/06/2018 10:23am Valentina Prieto MD [facility] ORDERABLES * CARDIOLIPIN ANTIBODY IGG/IGM PANEL (04/16/2018 3:27 PM CDT) Cardiolipin Antibody IgG <14 GPL [facility] Comment: < OR = 14 ??Negative ?15-20 ??Indeterminate ?21-80 ??Low to Medium Positive ?>80 ??High Positive Greater than or equal to 40 GPL is a risk factor for thrombosis and loss. For more information on this test, go to: http://education.Wireless Safety/faq/WCH762 Cardiolipin Antibody IgM <12 MPL [facility] Comment: Clinical Significance: The Antiphospholipid Antibody Syndrome (APS) is a clinical pathologic correlation that includes a clinical event (e.g. thrombosis, loss, thrombocytopenia) and persistent positive Antiphospholipid Antibodies (IgM or IgG CANDELARIA >40 MPL/GPL, IgM or IgG anti-B2GP1 antibodies, or a Lupus Anticoagulant). The IgA isotype has been implicated in smaller studies, but have not yet been incorporated into the APS criteria. International consensus guidelines suggest waiting at least 12 weeks before retesting to confirm antibody persistence. Reference J Thromb Haemost 2006: 4; 295. < OR = 12 ??Negative ?13-20 ??Indeterminate ?21-80 ??Low to Medium Positive ?>80 ??High Positive Greater than or equal to 40 MPL is a risk factor for thrombosis and loss. For more information on this test, go to: http://Vtion Wireless Technology/faq/KLE949 Test Performed at: [facility] [address] [place], [place] ??[address] STEVEN NORTON MD,PHD,EHSAN 04/16/2018 3:27 PM CDT 04/16/2018 3:37 PM CDT Valentina Prieto MD LAB - SEROLOGY OR DERABLES Performing Organization Address City/State/[facility] Co de Phone Number [facility] [address] [place] [address] * LUPUS ANTICOAGULANT PANEL W RFLX (04/16/2018 3:27 PM CDT) Lupus Anticoagulant see note [facility] Comment: A Lupus Anticoagulant is not detected. Reference Range: ??Not Detected ? http://[employer]/faq/LupusAnticoag ? This interpretation is based on the following test results. PTT Lupus Anticoagulant 33 <=40 sec [facility] Interpretation Not Indicated [facility] dRVVT Screen 40 <=45 sec [facility] Comment: REPORT COMMENT: FASTING:NO Test Performed at: [facility] [address] [place] [address] ?? LEIA SALDANA MD,PHD 04/16/2018 3:27 PM CDT 04/16/2018 3:37 PM CDT Valentina Prieto MD LAB - HEMATOLOGY ORDERABLES Performing Organization Address [facility] de Phone Number [facility] [phone] [place] [address] * BETA-2 GLYCOPROTEIN 1 ANTIBODY IGG/IGM/IGA PANEL (04/16/2018 3:27 PM CDT) B2 Glycoprotein Antibody IgG/IgA/IgM <9 <=20 [facility] Beta-2 Glycoprotein Antibody IgM <9 <=20 [facility] Beta-2 Glycoprotein I Antibody IgA <9 <=20 [facility] Comment: The Antiphospholipid Antibody Syndrome (APS) is a clinical-pathologic correlation that includes a clinical event (e.g. thrombosis, loss, thrombocytopenia) and persistent positive Antiphospholipid Antibodies (IgM or IgG CANDELARIA >40 MPL/GPL, IgM or IgG anti-B2GPI antibodies, or a Lupus Anticoagulant). The IgA isotype has been implicated in smaller studies, but have not yet been incorporated into the APS criteria. International consensus guidelines suggest waiting at least 12 weeks before retesting to confirm antibody persistence. Reference J Thromb Haemost 2006: 4; 295 For more information on this test, go to http://education.Wireless Safety/faq/IAF865 Test Performed at: [facility] [address] [place] [address] ?? LEIA SALDANA MD,PHD 04/16/2018 3:27 PM CDT 04/16/2018 3:37 PM CDT Valentina Prieto MD LAB - SEROLOGY OR DERABLES Performing Organization Address [facility] Co de Phone Number [facility] [phone] [place] [address] * CYTOMEGALOVIRUS ANTIBODY IGG/IGM BLOOD PANEL (04/16/2018 3:27 PM CDT) Cytomegalovirus Antibody IgG <0.60 U/mL [facility] Comment: ? U/mL ? Interpretation ? ----- ? <0.60 ? Negative ? 0.60-0.69 ? Equivocal ? > or = 0.70 ?? Positive A positive result indicates that the patient has antibody to CMV. It does not differentiate between an active or past infection. Cytomegalovirus Antibody IgM <30.00 AU/mL [facility] Comment: ?AU/mL ? Interpretation ?----- ?<30.00 ?No Antibody Detected ?30.00-34.99 ? Equivocal ?> or = 35.00 ?Antibody Detected Results from any one IgM assay should not be used as a sole determinant of a current or recent infection. Because an IgM test can yield false positive results and low level IgM antibody may persist for more than 12 months post infection, reliance on a single test result could be misleading. Acute infection is best diagnosed by demonstrating the conversion of IgG from negative to positive. If an acute infection is suspected, consider obtaining a new specimen and submit for both IgG and IgM testing in two or more weeks. Test Performed at: [facility] [address] [place], [place] ??[phone] SUSIE SCHULTZ DO,MPH 04/16/2018 3:27 PM CDT 04/16/2018 3:37 PM CDT Valentina Prieto MD LAB - CHEMISTRY O RDERABLES [facility] [address] [place] [address] * TOXOPLASMA ANTIBODY IGG/IGM PANEL (04/16/2018 3:27 PM CDT) Toxoplasma Antibody IgG <7.20 IU/mL [facility] Comment: ? IU/mL ?Interpretation ? ------ ? <7.20 ?Negative ? 7.20-8.79 ?Equivocal ? >8.79 ?Positive Toxoplasma Antibody IgM <8.00 AU/mL [facility] Comment: ?AU/mL ? Interpretation ?----- ?<8.00 ? Negative ?8.00-9.99 ? Equivocal ?>9.99 ? Positive Test Performed at: [facility] [address] [place], [place] ??[phone] SUSIE SCHULTZ DO,MPH 04/16/2018 3:27 PM CDT 04/16/2018 3:37 PM CDT Valentina Prieto MD LAB - CHEMISTRY O RDERABLES [facility] [address] [place] [address]
--- OUTSIDE RECORDS SUMMARY | 2024-09-29 16:14 | XMS_ITS | Encounter Summary ---
Author Organization [facility] Address [address] [place] [address] Phone Care Team Providers Care Dust Collector Operator Name Role Phone Marilee Bragg NP Primary Care Provider [phone] Berhane Sahu MD Primary Care Provider [phone] Encounter Details Date Type Department Care Team (Late st Contact Info) Description 08/05/2017 Orders Only [facility] Care ProviderLoki MD [address] [place] [address] Social History Tobacco Use Types Packs/Day Years Used Date Smoking Tobacco: Former Smokeless Tobacco: Never Comments:Smoking History Pac ks/day: 0.5 Packs Alcohol Use Standard Drinks/Week Comments No 0 (1 standard drink = 0.6 oz pur e alcohol) Comments Unknown Sex and Gender Information Value Date Recorded Sex Assigned at Not on file Legal Sex 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 Historical Provider LAB BLOOD ORDERABLES Mariana l Result documented in this encounter Visit Diagnoses Not on filedocumented in this encounter Care Teams Dust Collector Operator Relationship Specialty Start Date End Date Marilee Bragg NP PCP - General Family Medicine 05/08/17 10/19/21 Berhane Sahu MD [address] [place] [address] PCP - General Family Medicine 10/20/21 documented as of this encounter
[2024-09-29 16:21] VITALS: BP 114/66; PULSE 118; RESP 18; TEMP 38.1; O2SAT 100
--- NOTE | 2024-09-29 17:31 | ED_ITS ---
HPI - General Adult General Chief complaint: Upper Respiratory Infection Stated complaint: Cough/Chest Congestion Source: patient Mode of arrival: ambulatory Limitations: no limitations History of Present Illness HPI narrative: Patient presents for evaluation sick symptoms since yesterday. Symptoms include headache, sore throat, cough, generalized body aches. She denies any fever, chills, nausea, vomiting, diarrhea. She is currently , 20 weeks gestation. Denies any vaginal bleeding or abdominal pain. One of her family members just tested positive for strep pharyngitis. She does not smoke. Related Data Allergies Allergy/AdvReac Type Severity Reaction Status Date / Time No Known Allergies Allergy Unknown Verified 03/24/24 15:12 Review of Systems Review of Systems: CONSTITUTIONAL: Denies fever, chills, or sweats. EYES: Denies visual changes, redness, or discharge. ENT: Reports sore throat. Denies rhinorrhea, congestion, or otalgia. CARDIOVASCULAR: Denies chest pain, palpitations, or edema. RESPIRATORY: Reports cough. Denies shortness of breath. GASTROINTESTINAL: Denies abdominal pain, nausea, vomiting, or diarrhea. GENITOURINARY: Denies dysuria or hematuria. SKIN: Denies rash or itching. MUSCULOSKELETAL: Reports generalized body NEUROLOGIC: Reports headache. Denies numbness, dizziness, or weakness. PSYCHIATRIC: Denies anxiety or depression. [facility] Past Medical History Medical History No pertinent past medical history Surgical History Surgical History H/O wisdom tooth extraction History of hysteroscopy D & C Family History Family History Mother No problems noted. Other Family history non-contributory Social History Social History Smoking status: Never smoker Alcohol intake: former Substance use: never Substance use type: does not use Do You Feel Safe in your Home?: Yes Lack of Transportation: No Current Housing: I Have Housing Concerned About Future Housing: No Difficulty Paying Gas/Electric Bills: No Difficulty Paying for Meds: No Education: High School Diploma/GED Difficulty w/ Childcare or Family Care: No Living arrangements: with family Occupation/Education: occupation Gender identity (if verbalized by the patient): Female Sexual Orientation (if Verbalized by the Patient): Straight or Heterosexual Spiritual care concerns: No Agree to blood products: Yes Exam Narrative: GENERAL: Well-appearing, well-nourished, and in no acute distress. HEAD: Normocephalic, atraumatic. EYES: PERRLA and EOMI. ENT: Nares clear, no rhinorrhea or epistaxis. Mucous membranes moist. Posterior pharyngeal erythema. Oropharynx without tonsillar hypertrophy exudate or other lesions. Bilateral TMs pearly del castillo nonbulging NECK: Supple. No adenopathy or masses. No carotid bruits or JVD CHEST: Clear to auscultation. No respiratory distress. No wheezes rales or rhonchi HEART: Regular rate and rhythm. No murmur heard. Normal peripheral pulses. ABDOMEN: Soft, nontender, nondistended, normal active bowel sounds. EXTREMITIES: Normal range of motion. No edema. SKIN: Warm, dry, no rash. NEURO: No focal deficits. Alert and oriented x3. PSYCH: Normal mood and affect. Course Course Emergency Course: This is a 34-year-old female who presented for evaluation of sick symptoms. Strep, influenza were negative. Exam is consistent with acute viral syndrome. Patient appears quite well clinically. Heart rate normalized to 84 bpm. Increase hydration. Gsku-gfm-ghqpabh agents for symptom management. Follow up with primary provider. Go to the ER for worsening symptoms. Patient in agreement with plan of care. Level of Care: Express Care Visit Vital Signs Vital signs: Vital Signs Temperature 38.1 C H 09/29/24 16:21 Pulse Rate 118 H 09/29/24 16:21 Respiratory Rate 18 09/29/24 16:21 Blood Pressure 114/66 09/29/24 16:21 Pulse Oximetry 100 09/29/24 16:21 Oxygen Delivery Room Air 09/29/24 16:21 Temperature 38.1 C H 09/29/24 16:21 Pulse Rate 118 H 09/29/24 16:21 Respiratory Rate 18 09/29/24 16:21 Blood Pressure 114/66 09/29/24 16:21 Pulse Oximetry 100 09/29/24 16:21 Oxygen Delivery Room Air 09/29/24 16:21 Medical Decision Making Vital Signs Vital Signs: Vital Signs Temperature 38.1 C H 09/29/24 16:21 Pulse Rate 118 H 09/29/24 16:21 Respiratory Rate 18 09/29/24 16:21 Blood Pressure 114/66 09/29/24 16:21 Pulse Oximetry 100 09/29/24 16:21 Oxygen Delivery Room Air 09/29/24 16:21 Temperature 38.1 C H 09/29/24 16:21 Pulse Rate 118 H 09/29/24 16:21 Respiratory Rate 18 09/29/24 16:21 Blood Pressure 114/66 09/29/24 16:21 Pulse Oximetry 100 09/29/24 16:21 Oxygen Delivery Room Air 09/29/24 16:21 Lab Data Labs: Lab Results 09/29/24 09/29/24 Range/Units 17:44 17:55 POC Influenza A Ag Negative (Negative) POC Influenza B Ag Negative (Negative) POC SARS CoV-2 Ag Negative (Negative) POC Grp A Strep Screen Negative (Negative) Discharge Plan Discharge Clinical Impression: Acute viral syndrome Patient Disposition: Home, Self-Care Condition: Stable Instructions: Antibiotic Form, Viral Syndrome (ED) Patient Language: Congolese Follow-up/Referrals: Carmella Bullock APRN [Primary Care Provider] - Time of Disposition: 18:01
[2024-09-29 17:46] LABS: EDSTREPNEGPOS1 Negative (Negative)
[2024-09-29 17:57] LABS: EDCOVIDSCREEN Negative (Negative); EDINFLUASCREEN Negative (Negative); EDINFLUBSCREEN Negative (Negative)
[2024-09-29 18:17] VITALS: PULSE 88
== END 2024-09-29 18:07 | disposition home or self-care (01) ==
PROVIDERS: Emergency Provider Nurse Practitioner; PCP Nurse Practitioner Adult Health
DX: B34.9 Viral infection, unspecified (principal); Z20.822 Contact with and (suspected) exposure to COVID-19
CPT/HCPCS: 87081; 87426; 87804; 87880; 99213; G0463

== ENCOUNTER 2024-12-15 11:59 | Emergency (ER) | payer OTHER, SELFPAY ==
[2024-12-15 12:07] VITALS: BP 116/75; PULSE 88; RESP 20; TEMP 37.1; O2SAT 100
--- OUTSIDE RECORDS SUMMARY | 2024-12-15 13:05 | XMS_ITS | Referral Summary ---
Author Organization [facility] Address [address] [place] [address] Care Team Providers Care Derrick Boat Operator Name Role Phone Berhane Sahu MD Primary Care Provider [phone] Allergies Active Allergy Reactions Criticality Noted Date [...] 10/20/2021 Assessment & Plan (10/20/2021 2:50 PM PAPER BAG MACHINE OPERATOR): Discussed healthy diet and importance of regular [...] use Assessment & Plan (10/20/2021 2:52 PM PAPER BAG MACHINE OPERATOR): Quit smoking in 2015. 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 Will recheck labs today. Immunizations Immunization Administration Dates Next Due Influenza, Unspecified 11/29/2022(Deferr [...] on file Legal Sex Female 2:58 AM PAPER BAG MACHINE OPERATOR Gender Identity Not on file Sexual Orientation Not on file Last Filed Vital Signs Vital Sign Reading Time Taken Comments Blood Pressure 122/78 01/31/2023 2:55 PM CDT Pulse 89 01/31/2023 2:55 PM CDT Temperature 37.3 C (99.2 F) 01/31/2023 2:55 PM CDT Respiratory Rate 18 01/31/2023 2:55 PM CDT Oxygen Saturation 99% 01/31/2023 2:55 PM CDT Inhaled Oxygen Concentration - - Weight 58.5 kg (129 lb) 01/31/2023 2:55 PM CDT Height 160 cm (5' 2.99 ) 01/31/2023 2:55 PM CDT Body Mass Index 22.86 01/31/2023 2:55 PM CDT Plan of Treatment Not on file Insurance [facility] Member Subscriber Plan / Payer (Ef fective 2021-Present) Name:Lashae Oscar Relation to Subscriber:Self Name:Lashae Oscar Payer ID:[id number] (NAIC) Group ID:Not on file Type:MEDICAID RISK OTHER Address: [address] [place], [place] [id number] [place] [address] [facility] Care Teams Derrick Boat Operator Relationship Specialty Start Date End Date Berhane Sahu MD [address] [place] [address] PCP - General Family Medicine 10/20/21
--- OUTSIDE RECORDS SUMMARY | 2024-12-15 13:05 | XMS_ITS | Clinical Summary ---
Author Organization [facility] Office Building B Address [address] [place] [address] Care Team Providers Care Truck Body Builder Apprentice Name Role Phone Berhane Sahu MD Primary Care Provider [phone] Allergies Active Allergy Reactions Criticality Noted Date [...] 10/20/2021 Assessment & Plan (10/20/2021 2:50 PM HOME OFFICE CLAIM SPECIALIST): Discussed healthy diet and importance of regular [...] use Assessment & Plan (10/20/2021 2:52 PM HOME OFFICE CLAIM SPECIALIST): Quit smoking in 2015. Human papilloma virus [...] on file Legal Sex Female 2:58 AM HOME OFFICE CLAIM SPECIALIST Gender Identity Not on file Sexual Orientation [...] 12/13/2022, 10/20/2021, Additional history exists Influenza Vaccine (Season Ended) 2025 HPV Vaccines Aged Out No longer eligi ble based on patient's age to complete this topic Pneumococcal vaccine <65 Aged Out No longer eligible based on patient's age to complete this topic Insurance [facility] Care Teams Truck Body Builder Apprentice Relationship Specialty Start Date End Date Berhane Sahu MD [address] [place] [address] PCP - General Family Medicine 10/20/21
--- OUTSIDE RECORDS SUMMARY | 2024-12-15 13:05 | XMS_ITS | Clinical Summary ---
Author Organization [facility] Address [address] [place] [address] Care Team Providers Care Pre Sales Architect Name Role Phone Unavailable Primary Care Provider Unavailabl e Source Comments [facility],non-owned Affiliates and Associated Physician Practices is amultiple site organization consisting of ambulatory clinics and hospital sitesin [place], [place], [place] and [place]. This disclosure is being madepursuant to the Care Everywhere program and may not contain all information available regarding this patient. Last updated 18.[facility] Allergies Active Allergy Reactions Criticality Noted Date Comments Sertraline Rash Medium Reaction: Rash, Medications * Be aware that medications may not be up to date on this document. Alwaysverify current medications with the patient. Vqudgpli-Vwk-Ch- FA ( VITAMIN WITH IRON) tablet Take 1 tablet by mouth once daily Active Active Problems Problem Noted Date Diagnosed Date Supervision of high-risk of luz bowles kyel 04/16/2018 Overview (04/22/2018): LMP consistent with 6 [...] = 0.6 oz pur e alcohol) Comments No Sex and Gender Information Value Date Recorded Sex Assigned at Not on file Legal Sex Female 1:35 PM CDT Gender Identity Not on file Sexual Orientation [...] - 19+ 3-dose series) 2010 COVID-19 VACCINE ( - 2023-2 5 season) 2024 DEPRESSION SCREENING 09/02/2024 INFLUENZA VACCINE (Season Ended) 2025 ZOSTER VACCINE (1 of 2) 2041 HIB VACCINE Aged Out No longer eligi ble based on patient's age to complete this topic HPV VACCINE Aged Out No longer eligi ble based on patient's age to complete this topic MENINGOCOCCAL (Group B) VACC INE SHARED DECISION-MAKING Aged Out No longer eligibl e based on patient's age to complete this topic MENINGOCOCCAL GROUPS A/C/Y/W VACCINE Aged Out No longer eligible b ased on patient's age to complete this topic PNEUMOCOCCAL VACCINE Aged Out No long er eligible based on patient's age to complete this [place] [address] [place] [address] [facility]
--- OUTSIDE RECORDS SUMMARY | 2024-12-15 13:05 | XMS_ITS | Encounter Summary ---
Author Organization [facility] Address [address] [place] [address] Phone Care Team Providers Care Garnetter Name Role Phone Marilee Bragg NP Primary Care Provider [phone] Berhane Sahu MD Primary Care Provider [phone] Encounter Details Date Type Department Care Team (Late st Contact Info) Description 08/05/2017 Orders Only [facility] ProviderLoki MD [address] [place] [address] Social History Tobacco Use Types Packs/Day Years Used Date Smoking Tobacco: Former Smokeless Tobacco: Never Comments:Smoking History Pac ks/day: 0.5 Packs Alcohol Use Standard Drinks/Week Comments No 0 (1 standard drink = 0.6 oz pur e alcohol) Comments Unknown Sex and Gender Information Value Date Recorded Sex Assigned at Not on file Legal Sex Female 2:58 AM CREDIT RISK SPECIALIST Gender Identity Not on file Sexual Orientation Not on file documented as of this encounter Plan of Treatment Not on file documented as of this encounter Procedures Procedure Name Priority Date/Time Associated Diagnosis Comments DISCHARGE LABORATORY CUMULATIVE REPORT 08/05/2017 12:00 AM CREDIT RISK SPECIALIST documented in this encounter Results * DISCHARGE LABORATORY CUMULATIVE REPORT (08/05/2017 12:00 AM CREDIT RISK SPECIALIST) Narrative 08/05/2017 12:00 AM CREDIT RISK SPECIALIST Ordered by an unspecified provider. Historical Provider LAB BLOOD ORDERABLES Mariana l Result documented in this encounter Visit Diagnoses Not on filedocumented in this encounter Care Teams Garnetter Relationship Specialty Start Date End Date Marilee Bragg NP PCP - General Family Medicine 05/08/17 10/19/21 Berhane Sahu MD [address] [place] [address] PCP - General Family Medicine 10/20/21 documented as of this encounter
--- NOTE | 2024-12-15 13:06 | ED_ITS ---
HPI - URI/Sore Throat General Chief Complaint: Upper Respiratory Infection Stated Complaint: st/sore throat Time Seen by Provider: 12/15/24 13:00 Source: patient, RN notes reviewed and old records reviewed Mode of arrival: ambulatory Limitations: no limitations History of Present Illness HPI Narrative: 34 year old female who is 8 month presents to [facility] care with complaints of sore throat and some sinus drainage since yesterday. Patient reports that she has noted any fevers, chills or sweats or any body aches. Patient reports that sone was recently diagnosed with strep throat. MD elicited complaint: sore throat, rhinorrhea and nasal congestion Onset (ago): day(s) (started yesterday) Pain scale (0-10): 5 Able to tolerate fluids by mouth: Yes Treatments prior to arrival: none Related Data Home Medications ?Medication ?Instructions ?Recorded ?Confirmed ?Last Taken ?Type 12/15/24 Unknown History Allergies Allergy/AdvReac Type Severity Reaction Status Date / Time No Known Allergies Allergy Unknown Verified 12/15/24 12:39 Review of Systems Review of Systems: CONSTITUTIONAL: Denies malaise, chills, sweats, or fever. EYES: Denies visual changes, redness, or discharge. ENT: Reports rhinorrhea, congestion, no sinus pain,no otalgia and positive for sore throat. CARDIOVASCULAR: Denies chest pain, palpitations, or edema. RESPIRATORY: Reports no cough.? Denies dyspnea. GASTROINTESTINAL: Denies abdominal pain, nausea, vomiting, diarrhea SKIN: Denies rash or itching. MUSCULOSKELETAL: Denies myalgia. NEUROLOGIC: Denies headache. All systems reviewed & are unremarkable except as noted in HPI and below PMFSH Past Medical History Medical History No pertinent past medical history Surgical History Surgical History H/O wisdom tooth extraction History of hysteroscopy D & C Family History Family History Mother No problems noted. Other Family history non-contributory Social History Social History Smoking status: Never smoker Alcohol intake: former Substance use: never Substance use type: does not use Do You Feel Safe in your Home?: Yes Lack of Transportation: No Current Housing: I Have Housing Concerned About Future Housing: No Difficulty Paying Gas/Electric Bills: No Difficulty Paying for Meds: No Education: High School Diploma/GED Difficulty w/ Childcare or Family Care: No Living arrangements: with family Occupation/Education: occupation Gender identity (if verbalized by the patient): Female Sexual Orientation (if Verbalized by the Patient): Straight or Heterosexual Spiritual care concerns: No Agree to blood products: Yes Comments At time of signature, agree with nursing past medical, surgical, social and family history. There is no relevant family history pertinent to the presenting complaint Exam Narrative: GENERAL: Well-appearing, well-nourished, and in no acute distress. HEAD: Normocephalic EYES: PERRLA, conjunctivae clear ENT: Nares clear, turbinates edematous and erythematous, clear discharge. Mucous membranes moist. TM pearly del castillo with dull light reflex bilaterally; no tragal tenderness. Oropharynx erythematous without lesions. Tonsils not enlarged and without exudate, no drooling, no hoarseness, no trismus, uvula midline, post nasal drainage. NECK: Supple. No lymphadenopathy CHEST: Clear to auscultation, breath sounds equal. No wheezing, rhonchi, rales, or stridor. No respiratory distress, speaks in full sentences.SAO2 100% on room air HEART: Regular rate and rhythm. No murmur heard. SKIN: Warm, dry, no rash. NEURO: Alert and oriented x3. PSYCH: Normal mood and affect Course Course Emergency Course: Patient is aware of diagnosis, understands and agrees to treatment plan.? Anticipatory guidance given.? Patient agrees to follow-up as directed and is aware of reasons to seek care at the emergency department. Portions of this record may have been created with voice recognition software Level of Care: Express Care Visit Vital Signs Vital signs: Vital Signs Temperature 37.1 C 12/15/24 12:07 Pulse Rate 88 12/15/24 12:07 Respiratory Rate 20 12/15/24 12:07 Blood Pressure 116/75 12/15/24 12:07 Pulse Oximetry 100 12/15/24 12:07 Oxygen Delivery Room Air 12/15/24 12:07 Temperature 37.1 C 12/15/24 12:07 Pulse Rate 88 12/15/24 12:07 Respiratory Rate 20 12/15/24 12:07 Blood Pressure 116/75 12/15/24 12:07 Pulse Oximetry 100 12/15/24 12:07 Oxygen Delivery Room Air 12/15/24 12:07 Reviewed MDM - URI/Sore Throat MDM Narrative Medical decision making narrative: Differential diagnosis considered: Blount virus, strep pharyngitis, allergic rhinitis, upper respiratory tract infection, sinusitis, rhinosinusitis, nasopharyngitis. viral pharyngitis, otitis media, otitis externa, pneumonia, bronchitis, viral cough syndrome, viral syndrome, and influenza.? Exam findings show no acute concerns or changes; patient is non-toxic appearing and is in no distress.? Patient is appropriate for outpatient treatment and follow-up. Differential Diagnosis Differential diagnosis: Likely upper respiratory infection, pharyngitis and other (strep pharyngitis, allergic rhinitis) Medical Records Attestation: I reviewed the patient's medical records. Lab Data Attestation: I reviewed the patient's lab results. Lab results narrative: strep screen neg culture sent Labs: Lab Results 12/15/24 Range/Units 12:13 POC Grp A Strep Screen Negative (Negative) Critical Care Time Critical Care Time Critical Care Time: No Discharge Plan Discharge Clinical Impression: Sore throat Patient Disposition: Home Condition: Stable Instructions: Antibiotic Form, Pharyngitis (ED) Additional Instructions: Claritin or Zyrtec daily Throw away your current toothbrush and begin using a new toothbrush in 48 hours in order to prevent re-infection. Sanitize all reusable water bottles . Do not share items with others. Salt water gargles may alleviate some of the throat discomfort. You can take Tylenol per the package instructions for pain/fever. Your strep test today was negative. A throat culture will be sent to the laboratory for further testing. IF the test is positive, you will receive a phone call within 48 hours and an appropriate antibiotic will be initiated at that time. Patient Language: Kazakh Prescriptions: No Action Follow-up/Referrals: UNKNOWN,DOCTOR [Primary Care Provider] - Time of Disposition: 13:36 Quality [place] Coma Scale Eyes: Open Verbal: Oriented and Alert Motor: Follows Commands Cat Coma Total Score: 15
[2024-12-15 13:12] LABS: EDSTREPNEGPOS1 Negative (Negative)
== END 2024-12-15 13:40 | disposition home or self-care (01) ==
PROVIDERS: Emergency Provider Registered Nurse
DX: J02.9 Acute pharyngitis, unspecified (principal)
CPT/HCPCS: 87081; 87880; 99213; G0463

== ENCOUNTER 2025-01-19 00:45 | Observation (INO) | payer OTHER, SELFPAY ==
[2025-01-19 04:09] VITALS: BMI 27.2
--- OUTSIDE RECORDS SUMMARY | 2025-01-19 04:09 | XMS_ITS | Referral Summary ---
Author Organization [facility] Address [address] [place] [address] Care Team Providers Care Sanitation Associate Name Role Phone Berhane Sahu MD Primary Care Provider [phone] Allergies Active Allergy Reactions Criticality Noted Date [...] 10/20/2021 Assessment & Plan (10/20/2021 2:50 PM GROCERY ASSOCIATE): Discussed healthy diet and importance of regular [...] use Assessment & Plan (10/20/2021 2:52 PM GROCERY ASSOCIATE): Quit smoking in 2015. Human papilloma virus [...] on file Legal Sex Female 2:58 AM GROCERY ASSOCIATE Gender Identity Not on file Sexual Orientation [...] Plan of Treatment Not on file Insurance [facility] Care Teams Sanitation Associate Relationship Specialty Start Date End Date Berhane Sahu MD [address] [place] [address] PCP - General Family Medicine 10/20/21
--- OUTSIDE RECORDS SUMMARY | 2025-01-19 04:09 | XMS_ITS | Clinical Summary ---
Author Organization [facility] Address [address] [place] [address] Care Team Providers Care Supply Room Clerk Name Role Phone Berhane Sahu MD Primary Care Provider [phone] Allergies Active Allergy Reactions Criticality Noted Date [...] 10/20/2021 Assessment & Plan (10/20/2021 2:50 PM FISH BAIT PROCESSING SUPERVISOR): Discussed healthy diet and importance of regular [...] use Assessment & Plan (10/20/2021 2:52 PM FISH BAIT PROCESSING SUPERVISOR): Quit smoking in 2015. Human papilloma virus [...] on file Legal Sex Female 2:58 AM FISH BAIT PROCESSING SUPERVISOR Gender Identity Not on file Sexual Orientation [...] patient's age to complete this topic Insurance [facility] Care Teams Supply Room Clerk Relationship Specialty Start Date End Date Berh[place] [address] PCP - General Family Medicine 10/20/21
--- OUTSIDE RECORDS SUMMARY | 2025-01-19 04:09 | XMS_ITS | Clinical Summary ---
Author Organization [facility] Address [address] [place] [address] Care Team Providers Care Naval Aircrewman Tactical Helicopter Name Role Phone Unavailable Primary Care Provider Unavailabl e Source Comments [facility],non-owned Affiliates and Associated Physician Practices is amultiple site organization consisting of ambulatory clinics and hospital sitesin [place], [place], [place] and [place]. This disclosure is being madepursuant to the Care Everywhere program and may not contain all information available regarding this patient. Last updated 18.[facility] Allergies Active Allergy Reactions Criticality Noted Date Comments Sertraline Rash Medium Reaction: Rash, Medications * Be aware that medications may not be up to date on this document. Alwaysverify current medications with the patient. Vcpucvtt-Sbn-Kb- FA ( VITAMIN WITH IRON) tablet Take [...] Used Date Smoking Tobacco: Former Cigarettes 2 2015 Smokeless Tobacco: Never Alcohol Use Standard [...] Health Maintenance Due Date Last Done Comments HIV SCREENING 2006 HEPATITIS C SCREENING 08/23/2009 [...] age to complete this topic [place] [address] [facility]
--- OUTSIDE RECORDS SUMMARY | 2025-01-19 04:09 | XMS_ITS | Encounter Summary ---
Author Organization [facility] Address [address] [place] [address] Phone Care Team Providers Care Mailing Clerk Name Role Phone Marilee Bragg NP Primary Care Provider [phone] Berhane Sahu MD Primary Care Provider [phone] Encounter Details Date Type Department Care Team (Late st Contact Info) Description 08/05/2017 Orders Only [facility] ProviderLoki MD [address] [place] [id number] Social History Tobacco Use Types Packs/Day Years Used Date Smoking Tobacco: Former Smokeless Tobacco: Never Comments:Smoking History Pac ks/day: 0.5 Packs Alcohol Use Standard Drinks/Week Comments No 0 (1 standard drink = 0.6 oz pur e alcohol) Comments Unknown Sex and Gender Information Value Date Recorded Sex Assigned at Not on file Legal Sex Female 2:58 AM HOTEL AND DINING ROOM CASHIER Gender Identity Not on file Sexual Orientation Not on file documented as of this encounter Plan of Treatment Not on file documented as of this encounter Procedures Procedure Name Priority Date/Time Associated Diagnosis Comments DISCHARGE LABORATORY CUMULATIVE REPORT 08/05/2017 12:00 AM HOTEL AND DINING ROOM CASHIER documented in this encounter Results * DISCHARGE LABORATORY CUMULATIVE REPORT (08/05/2017 12:00 AM HOTEL AND DINING ROOM CASHIER) Narrative 08/05/2017 12:00 AM HOTEL AND DINING ROOM CASHIER Ordered by an unspecified provider. Historical Provider LAB BLOOD ORDERABLES Mariana l Result documented in this encounter Visit Diagnoses Not on filedocumented in this encounter Care Teams Mailing Clerk Relationship Specialty Start Date End Date Marilee Bragg NP PCP - General Family Medicine 05/08/17 10/19/21 Berhane Sahu MD [address] [place] [address] PCP - General Family Medicine 10/20/21 documented as of this encounter
--- NOTE | 2025-01-19 04:11 | OBADM ---
This patient, Lashae Oscar, admitted to the OB room Labor/Delivery/Recovery 104 for observation. Patient/family oriented to hospital policies and general routines including ID bracelet, bed and alarms, visiting hours, pain management, procedures, bathroom and other care routines, personal items, smoking policy, room service/diet, and visiting hours. Patient/Family are encouraged to report perceived risks to care and to ask questions if they do not understand what they are told or what they should do.
--- NOTE | 2025-01-20 12:07 | PM.OBTRLD ---
OB - Triage/Final Diagnosis Visit Information Reason for evaluation: threatened labor Comments/Additional reasons for admission: I have assessed the risk for this patient, Lashae Oscar, and determined that she would benefit from observation care.
== END 2025-01-19 04:19 | disposition home or self-care (01) ==
PROVIDERS: Admitting Provider Obstetrics & Gynecology; Visit Provider Obstetrics & Gynecology
DX: O47.1 False labor at or after 37 completed weeks of gestation (principal); Z3A.37 37 weeks gestation of pregnancy
CPT/HCPCS: G0378; G0379

== ENCOUNTER 2025-02-02 13:59 | Inpatient (IN) | payer OTHER, SELFPAY ==
[2025-02-02] VITALS (61 sets, daily range): BP systolic 62–171; BP diastolic 48–133; PULSE 64–175; TEMP 36.6–37.2; O2SAT 76–100; BMI 26.4
--- OUTSIDE RECORDS SUMMARY | 2025-02-02 14:04 | XMS_ITS | Clinical Summary ---
Author Organization [email or web address] Address [address] [place] [address] Care Team Providers Care Law Writer Name Role Phone Unavailable Primary Care Provider Unavailabl e Source Comments [email or web address],non-owned Affiliates and Associated Physician Practices is amultiple site organization consisting of ambulatory clinics and hospital sitesin [place], [place], [place]. This disclosure is being madepursuant to the Care Everywhere program and may not contain all information available regarding this patient. Last updated 18.[email or web address] Allergies Active Allergy Reactions Criticality Noted Date Comments Sertraline Rash Medium Reaction: Rash, Medications * Be aware that medications may not be up to date on this document. Alwaysverify current medications with the patient. Yetqevfu-Qzi-Lc- FA ( VITAMIN WITH IRON) tablet Take [...] 9:07 AM CDT Height 162.6 cm (5' 4) 05/28/2018 9:07 AM CDT Body Mass Index [...] to complete this [place] [place] [address] [facility]
--- OUTSIDE RECORDS SUMMARY | 2025-02-02 14:04 | XMS_ITS | Clinical Summary ---
Author Organization [facility] Address [address] [place] [address] Care Team Providers Care Chief Of Production Name Role Phone Berhane Sahu MD Primary Care Provider [phone] Allergies Active Allergy Reactions Criticality Noted Date [...] 10/20/2021 Assessment & Plan (10/20/2021 2:50 PM DRY CHARGE PROCESS ATTENDANT): Discussed healthy diet and importance of regular [...] use Assessment & Plan (10/20/2021 2:52 PM DRY CHARGE PROCESS ATTENDANT): Quit smoking in 2015. Human papilloma virus [...] on file Legal Sex Female 2:58 AM DRY CHARGE PROCESS ATTENDANT Gender Identity Not on file Sexual Orientation [...] 2:55 PM CDT Height 160 cm (5' 2.99) 01/31/2023 2:55 PM CDT Body Mass Index [...] patient's age to complete this topic Insurance [facility] Care Teams Chief Of Production Relationship Specialty Start Date End Date Ber[place] [address] PCP - General Family Medicine 10/20/21
--- OUTSIDE RECORDS SUMMARY | 2025-02-02 14:04 | XMS_ITS | Referral Summary ---
Author Organization [facility] Address [address] [place] [address] Care Team Providers Care Trimming Caser Name Role Phone Berhane Sahu MD Primary Care Provider [phone] Allergies Active Allergy Reactions Criticality Noted Date [...] 10/20/2021 Assessment & Plan (10/20/2021 2:50 PM BISTRO ATTENDANT): Discussed healthy diet and importance of [...] use Assessment & Plan (10/20/2021 2:52 PM BISTRO ATTENDANT): Quit smoking in 2015. Human papilloma [...] on file Legal Sex Female 2:58 AM BISTRO ATTENDANT Gender Identity Not on file Sexual [...] Plan of Treatment Not on file Insurance [facility] Care Teams Trimming Caser Relationship Specialty Start Date End Date Berhane Sahu MD [address] [place] [address] PCP - General Family Medicine 10/20/21
--- OUTSIDE RECORDS SUMMARY | 2025-02-02 14:04 | XMS_ITS | Encounter Summary ---
Author Organization [facility] Address [address] [place] [address] Phone Care Team Providers Care Hand Coper Name Role Phone Marilee Bragg NP Primary Care Provider [phone] Berhane Sahu MD Primary Care Provider [phone] Encounter Details Date Type Department Care Team (Late st Contact Info) Description 08/05/2017 Orders Only [facility] ProviderLoki MD [address] [place] [address] Social History Tobacco Use Types Packs/Day Years Used Date Smoking Tobacco: Former Smokeless Tobacco: Never Comments:Smoking History Pac ks/day: 0.5 Packs Alcohol Use Standard Drinks/Week Comments No 0 (1 standard drink = 0.6 oz pur e alcohol) Comments Unknown Sex and Gender Information Value Date Recorded Sex Assigned at Not on file Legal Sex Female 2:58 AM GAS METER CHECKER Gender Identity Not on file Sexual Orientation Not on file documented as of this encounter Plan of Treatment Not on file documented as of this encounter Procedures Procedure Name Priority Date/Time Associated Diagnosis Comments DISCHARGE LABORATORY CUMULATIVE REPORT 08/05/2017 12:00 AM GAS METER CHECKER documented in this encounter Results * DISCHARGE LABORATORY CUMULATIVE REPORT (08/05/2017 12:00 AM GAS METER CHECKER) Narrative 08/05/2017 12:00 AM GAS METER CHECKER Ordered by an unspecified provider. Historical Provider LAB BLOOD ORDERABLES Mariana l Result documented in this encounter Visit Diagnoses Not on filedocumented in this encounter Care Teams Hand Coper Relationship Specialty Start Date End Date Marilee Bragg NP PCP - General Family Medicine 05/08/17 10/19/21 Berhane Sahu MD [address] [place] [address] PCP - General Family Medicine 10/20/21 documented as of this encounter
[2025-02-02 16:17] LABS: Basophils Percent Auto 0.3 % (0.2-1.2); Eosinophils Absolute Auto 0.1 K/mm3 (0-0.3); Eosinophils Percent Auto 0.6 % (0-4.4); Hematocrit 34.3 % (37.0-47.0); Hemoglobin 10.7 g/dL (12.0-15.0); Immature Granulocyte Absolute 0.07 K/mm3 (0.00-0.031); Immature Granulocyte Percent A 0.6 % (0-0.5); Mean Corpuscular HGB Conc 31.2 g/dl (32-36); Mean Corpuscular Hemoglobin 25.2 pg (26-34); Mean Corpuscular Volume 80.9 fl (80-100); Mean Platelet Volume 10.9 fl (7.4-10.4); Monocytes Absolute Auto 0.8 K/mm3 (0.1-0.6); Monocytes Percent Auto 6.5 % (2.6-8.5); Neutrophils Absolute Auto 9.5 K/mm3 (1.3-6.7); Platelet Count Result 335 k/mm3 (150-375); Red Blood Count 4.24 M/mm3 (4.2-5.4); Red Cell Distribution Width 14.2 % (11.5-14.5); White Blood Count 11.8 K/mm3 (4.5-10.0)
[2025-02-02] MEDS: OXYTOCIN 30 UNITS/NS 500 ML 30 UNITS/500 ML BAG IV CONT (16:41)
[2025-02-02] MEDS: LACTATED RINGERS 1,000 ML 125 ML IV CONT (16:41)
[2025-02-02 17:11] LABS: HIV 1/2 Ab P24 Ag Result Negative (Negative)
--- NOTE | 2025-02-02 17:31 | WPDOBADMIT ---
Obstetrics - Admit Note Admission Note: record reviewed. Additions to the history and/or subsequent changes in the physical findings follow. 34 y/o at 39 1/7 weeks here for induction of labor. GBS neg. AVSS NST reactive TOCO: contractions every 2-4 min ABD soft, nontender, gravid, vertex EXT nontender Cervix 4/50/-2. AROM with clear fluid. A: IUP at term with favorable cervix, desiring induction of labor. P: Oxytocin. Anticipate .
[2025-02-02 17:40] LABS: Syphilis IgG/IgM Antibody Negative (Negative)
--- NOTE | 2025-02-02 19:04 | LDADM ---
This patient, Lashae Oscar, was admitted to Labor/Delivery/Recovery 107 on 02/02/25 at 13:59. Plans for labor, pain management and were discussed with patient. Patient/family oriented to hospital policies and general routines including ID bracelet, bed and alarms, visiting hours, pain management, procedures, bathroom and other care routines, personal items, smoking policy, room service/diet and guest tray routines, infant security routines, and visiting hours. Patient/Family are encouraged to report perceived risks to care and to ask questions if they do not understand what they are told or what they should do. See OBIX for further documentation.
--- NOTE | 2025-02-02 21:45 | WPDANESEPP ---
Anes - Eval Pre Procedure Procedure: Labor Epidural Date/Time: 02/02/25 21:45 Surgeon: Jong Preop Diagnosis: Labor Pain Pre Op Diagnosis: Induction of Labor Patient Data Age: 34 Gender: F Height: 1.63 m Weight: 70 kg Last Vital Signs Temp 37.2 C 02/02/25 16:50 Pulse 77 02/02/25 20:46 BP 124/79 02/02/25 20:46 Pulse Ox 100 02/02/25 21:43 Allergies Allergy/AdvReac Type Severity Reaction Status Date / Time No Known Allergies Allergy Unknown Verified 01/19/25 14:45 Home Medications ?Medication ?Instructions ?Recorded ?Confirmed ?Type 12/15/24 History Laboratory Tests 02/02/25 16:07 WBC 11.8 H K/mm3 (4.5-10.0) RBC 4.24 M/mm3 (4.2-5.4) Hgb 10.7 L D g/dL (12.0-15.0) Hct 34.3 L % (37.0-47.0) MCV 80.9 fl (80-100) MCH 25.2 L pg (26-34) MCHC 31.2 L g/dl (32-36) RDW 14.2 % (11.5-14.5) Plt Count 335 k/mm3 (150-375) MPV 10.9 H fl (7.4-10.4) Immature Gran % (Auto) 0.6 H % (0-0.5) Neut % (Auto) 81.0 H % (45.5-73.1) Lymph % (Auto) 11.0 L % (18.3-44.2) [place] % (Auto) 6.5 % (2.6-8.5) Eos % (Auto) 0.6 % (0-4.4) Baso % (Auto) 0.3 % (0.2-1.2) Lymph # (Auto) 1.30 K/mm3 (0.9-3.2) [place] # (Auto) 0.8 H K/mm3 (0.1-0.6) Eos # (Auto) 0.1 K/mm3 (0-0.3) Baso # (Auto) 0.0 K/mm3 (0.0-0.1) Abs Immat Gran (auto) 0.07 H K/mm3 (0.00-0.031) Absolute Neuts (auto) 9.5 H K/mm3 (1.3-6.7) Absolute Nucleated RBC 0.000 K/mm3 (0.0-0.012) Nucleated RBC % 0.0 % (0.0-0.2) Syphilis IgG/IgM Ab Negative (Negative) HIV 1&2 Ab/P24 Ag 4thGn Negative (Negative) Blood Type O Positive Antibody Screen Negative : gestational age (, JUSTIN 02/08/25) Patient hx anesthesia problems: none Family hx anesthesia problems: none Results Review: All pre-operative results and documents have been reviewed as part of the pre-operative evaluation. [facility] Past Medical History Medical History No pertinent past medical history Surgical History Surgical History H/O wisdom tooth extraction History of hysteroscopy D & C Family History Family History Mother No problems noted. Other Family history non-contributory Social History Social History Smoking status: Former smoker Tobacco type: cigarettes Alcohol intake: former Substance use: never Substance use type: does not use Do You Feel Safe in your Home?: Yes Lack of Transportation: No Lack of Food: Never True Current Housing: I Have Housing Concerned About Future Housing: No Difficulty Paying Gas/Electric Bills: No Difficulty Paying for Meds: No Currently Unemployed: No Education: Associate Degree Difficulty w/ Childcare or Family Care: No Living arrangements: with family Occupation/Education: occupation Gender identity (if verbalized by the patient): Female Sexual Orientation (if Verbalized by the Patient): Straight or Heterosexual Spiritual care concerns: No Agree to blood products: Yes Exam Day of Procedure 02/02/25 21:45 Patient weight: normal Heart: regular rate and rhythm Lungs: normal air movement Airway: Mallampati scale class II Neurological: alert and oriented
--- NOTE | 2025-02-02 23:13 | PM.OBPRVD ---
OB - Vaginal Delivery Note Procedure Delivery date: 02/02/25 Induction method: Per Pitocin Protocol Delivery augmentation: Rupture of Membranes Delivery monitor: External FHT and External Uterine Route of delivery: Episiotomy description: None Laceration Description: Perineal - 2nd Degree Delivery repair: vicryl (3-0) Specimen: Yes (cord blood) Quantitative Blood Loss (ml): 95 Anesthesia type: Local (1% lidocaine) Disposition: PACU Complications: None Narrative: 34 y/o at 39 1/7 weeks gestation who presented to the hospital for induction of labor. Oxytocin was administered intravenously. Amniotomy was performed with return of clear fluid. Her labor progressed and her cervix dilated completely. She pushed with good effort and delivered the infant's head to the perineum, followed by the body. The nose and mouth were bulb suctioned. After a delay, the cord was clamped and cut. The was handed off the field. Cord blood was collected. The placenta delivered spontaneously and was grossly normal in appearance. The usual 3 vessel cord was noted. A second degree midline perineal laceration was sustained. This was infiltrated with 10 mL 1% lidocaine and reapproximated using 3 0 Vicryl in the usual layered fashion. Excellent hemostasis resulted as did excellent reapproximation of the normal anatomy. Needle and instrument counts were correct. The patient was taken to recovery room in stable condition. The infant went to the nursery in stable condition. I was present and scrubbed for the entire delivery. Baby Date of : 02/02/25 Time of : 22:55 Gestational Age by Date: 39 gender: Male Weight (pounds): 7 Weight (ounces): 5 presentation: vertex position: Left Occiput Anterior Placenta delivery description: Spontaneous and Normal Configuration Cord Vessel Description: 3 Vessels and Delayed Cord Clamping score one minute: 9 score five minutes: 9
--- NOTE | 2025-02-02 23:15 | P.DS_ITS ---
DS: Admitting Diagnosis Discharge Date 02/04/25 Admitting Diagnosis IUP at 39 1/7 weeks DS: Discharge Diagnosis Discharge Diagnosis (1) (normal spontaneous vaginal delivery): Code(s): O80 - Encounter for full-term uncomplicated delivery Status: Acute OB - DS: Summary OB Procedures : None OB Procedures Intrapartum: Spontaneous Vag Delivery OB Procedures: : None Peripartum Data Laceration Description: Perineal - 2nd Degree Episiotomy description: None Time Spent with Patient Time attestation: Total time spent providing and/or coordinating discharge services: DS: Data Data Completed and Pending Labs on day of discharge: Labs from last 24 hours 02/02/25 16:07 WBC 11.8 H RBC 4.24 Hgb 10.7 L D Hct 34.3 L MCV 80.9 MCH 25.2 L MCHC 31.2 L RDW 14.2 Plt Count 335 MPV 10.9 H Immature Gran % (Auto) 0.6 H Neut % (Auto) 81.0 H Lymph % (Auto) 11.0 L [place] % (Auto) 6.5 Eos % (Auto) 0.6 Baso % (Auto) 0.3 Lymph # (Auto) 1.30 [place] # (Auto) 0.8 H Eos # (Auto) 0.1 Baso # (Auto) 0.0 Abs Immat Gran (auto) 0.07 H Absolute Neuts (auto) 9.5 H Absolute Nucleated RBC 0.000 Nucleated RBC % 0.0 Syphilis IgG/IgM Ab Negative HIV 1&2 Ab/P24 Ag 4thGn Negative Blood Type O Positive Antibody Screen Negative Discharge Plan Discharge Attending physician on discharge: Cortez Sunshine Discharging Clinician: Cortez Sunshine Patient Disposition: Home Activity: pelvic rest Diet: regular Discharge Instructions: Call or return if temperature above 100.4? F, increased abdominal pain, increased vaginal bleeding or any new problems. Patient Language: Greenlandic Stand Alone Forms: General Discharge Information Follow-up/Referrals: Cortez Sunshine MD [Physician] - 6 Weeks Discharge Medications: New ibuprofen 600 mg tablet 600 mg PO Q6H PRN (Reason: cramps) Qty: 30 0RF No Action Date of admission: 02/02/25 13:59 Primary Care Provider: UNKNOWN,DOCTOR Admitting Provider: Cortze Sunshine Attending physician on admission: Cortez Sunshine Condition: Stable
[2025-02-02] MEDS: OXYTOCIN 30 UNITS/NS 500 ML 30 UNITS/500 ML BAG 125 UNITS IV CONT (23:24)
[2025-02-02] MEDS: OXYTOCIN 30 UNITS/NS 500 ML 30 UNITS/500 ML BAG 999 UNITS IV CONT (23:24)
[2025-02-03] VITALS (10 sets, daily range): BP systolic 96–135; BP diastolic 53–73; PULSE 61–83; RESP 16–18; TEMP 36.3–37.7; O2SAT 98–100
--- NOTE | 2025-02-03 02:10 | OBPPTRN ---
Patient transferred to post room #286 via wheelchair. Oriented to unit, room, information board, rooming in, admission packet and security measures. Patient verbalizes understanding.
[2025-02-03] MEDS: HYDROcodone/acetaminophen (*CRX) 5-325 MG TABLET 1 TAB PO ×2 (02:58→08:14)
[2025-02-03 05:43] LABS: Hematocrit 37.4 % (37.0-47.0); Hemoglobin 11.4 g/dL (12.0-15.0)
[2025-02-03] MEDS: MULTIVIT/MIN/PREN/FOL AC/IRON TABLET 1 TAB PO (08:15)
[2025-02-03] MEDS: DOCUSATE SODIUM 100 MG CAPSULE PO (08:15)
--- NOTE | 2025-02-03 08:23 | P.PNOB_ITS ---
OB - PN: Subj Subjective Date/time seen: 02/03/25 08:23 Narrative: Pain OK. Would like circumcision for son. OB - PN: Obj Data Labs 02/03/25 05:16 Labs: Laboratory Results - last 24 hr 02/02/25 02/03/25 16:07 05:16 WBC 11.8 H RBC 4.24 Hgb 10.7 L D 11.4 L Hct 34.3 L 37.4 MCV 80.9 MCH 25.2 L MCHC 31.2 L RDW 14.2 Plt Count 335 MPV 10.9 H Immature Gran % (Auto) 0.6 H Neut % (Auto) 81.0 H Lymph % (Auto) 11.0 L [place] % (Auto) 6.5 Eos % (Auto) 0.6 Baso % (Auto) 0.3 Lymph # (Auto) 1.30 [place] # (Auto) 0.8 H Eos # (Auto) 0.1 Baso # (Auto) 0.0 Abs Immat Gran (auto) 0.07 H Absolute Neuts (auto) 9.5 H Absolute Nucleated RBC 0.000 Nucleated RBC % 0.0 Syphilis IgG/IgM Ab Negative HIV 1&2 Ab/P24 Ag 4thGn Negative Blood Type O Positive Antibody Screen Negative OB - PN A/P Plan day: 1 Comments: A: PPD#1, doing well. P: Routine care. Reviewed circ. Exam 2 Psych: Other: AVSS ABD soft, nontender, fundus firm EXT nontender
[2025-02-03] MEDS: IBUPROFEN 600 MG TABLET PO (14:17)
--- NOTE | 2025-02-03 14:53 | PC.NURSE ---
1145. Mother verbalizes she is able to independently latch infant with appropriate positioning and alignment. She denies any nipple discomfort and is responsively . is currently meeting outcomes for output, jaundice, blood sugar and feeding frequencies of 8-12 times in 24 hours. She states she can hear infant with lots of swallows already. Mother reports she used a nipple shield with her previous children but has not had to use it yet with her new baby. She reports she fed her previous 2 children for over a year each. Mother declines any additional assistance or education at this time. Mother is encouraged to call for assistance if her doesn?t latch, pain with latching, questions or concerns. Mother voiced understanding of information shared along with the mom/baby guide for an additional resource. Reported to the Primary RN.
[2025-02-03] MEDS: HYDROcodone/acetaminophen (*CRX) 5-325 MG TABLET 2 TAB PO (19:31)
[2025-02-04 00:30] VITALS: BP 105/69; PULSE 63; RESP 18; TEMP 36.6; O2SAT 100
[2025-02-04 04:39] VITALS: BP 127/82; PULSE 73; RESP 19; TEMP 36.4; O2SAT 100
[2025-02-04] MEDS: HYDROcodone/acetaminophen (*CRX) 5-325 MG TABLET 2 TAB PO ×2 (05:56→12:47)
[2025-02-04] MEDS: IBUPROFEN 600 MG TABLET PO ×2 (05:57→12:48)
[2025-02-04 08:25] VITALS: BP 116/78; PULSE 74; RESP 16; TEMP 36.7; O2SAT 100
[2025-02-04] MEDS: LANOLIN (LANSINOH) 7.5 GM CREAM 1 APPLIC TOPICAL (09:53)
[2025-02-04] MEDS: WITCH HAZEL 40 PADS 1 PAD TOPICAL (09:53)
[2025-02-04] MEDS: BENZOCAINE 20% AER SPR (*SP) 56 GM CAN 1 SPRAY TOPICAL (09:53)
[2025-02-04] MEDS: MULTIVIT/MIN/PREN/FOL AC/IRON TABLET 1 TAB PO (09:54)
[2025-02-04] MEDS: DOCUSATE SODIUM 100 MG CAPSULE PO (09:54)
--- NOTE | 2025-02-04 12:01 | P.PNOB_ITS ---
OB - PN: Subj Subjective Date/time seen: 02/04/25 12:01 Narrative: Pain OK. Would like to go home. OB - PN: Obj Data Labs 02/03/25 05:16 OB - PN A/P Plan day: 2 Comments: A: PPD#2, doing well. P: Home to f/u 6 weeks. Exam 2 Psych: Other: AVSS ABD soft, nontender, fundus firm EXT nontender
[2025-02-06 14:45] VITALS: BP 131/85; PULSE 78; RESP 18; TEMP 37.1; O2SAT 100
== END 2025-02-04 15:13 | disposition home or self-care (01) | DRG 560 ==
LOC: ANHLDR 23:17 → ANHOB2 02-03 02:14
PROVIDERS: Admitting Provider Obstetrics & Gynecology; Visit Provider Obstetrics & Gynecology
DX: O70.1 Second degree perineal laceration during delivery (principal); Z3A.39 39 weeks gestation of pregnancy; Z37.0 Single live birth
CPT/HCPCS: 36415; 85014; 85018; 85025; 86593; 86703; 86850; 86900; 86901; A9270; G0432; J2590; J2795; J7120